=== PATIENT | male | born 1960 | race African-American/Black ===

== ENCOUNTER 2016-07-13 12:07 | Inpatient (IN) | payer OTHER ==
[2016-07-13 12:47] VITALS: BMI 27.5
--- NOTE | 2016-07-13 14:08 | HP ---
COWS - Scale Resting Pulse: 1= [place] 81-100 Sweatin= Chills/Flushing Restless Observation: 1= Difficult to Sit Still Pupil Size: 0= Normal to Room Light Bone or Joint Aches: 2= Severe Diffuse Aches Runny Nose/ Eye Tearin= Nasal Congestion GI Upset > 30mins: 1= Stomach Cramp Tremor Observation: 1= Tremor [place], Not Seen Yawning Observation: 1= 1-2x During Session Anxiety or Irritability: 1=Feels Anxious/Irritable Goose Flesh Skin: 0=Smooth Skin COWS Score: 10 Admission ROS BHS - HPI Chief Complaint: I want to stop - my friend overdosed - they just took him off the life support yesterday Allergies/Adverse Reactions: Allergies Allergy/AdvReac Type Severity Reaction Status Date / Time No Known Allergies Allergy Verified 07/13/16 14:02 History of Present Illness: 56 yo gentleman here for detox from opiates, history of previous detox, no seizures. Exam Limitations: Clinical Condition - Ebola screening Have you traveled outside of the country in the last 21 days: No Have you had contact with anyone from an Ebola affected area: No Have you been sick,other than usual withdrawal symptoms: No Do you have a fever: No - Review of Systems Constitutional: Chills, Loss of Appetite, Night Sweats, Changes in sleep EENT: reports: Blurred Vision, Nose Congestion Respiratory: reports: No Symptoms reported Cardiac: reports: No Symptoms Reported GI: reports: Diarrhea, Nausea : reports: No Symptoms Reported Musculoskeletal: reports: Back Pain, Muscle Pain Integumentary: reports: No Symptoms Reported Neuro: reports: Headache Endocrine: reports: No Symptoms Reported Hematology: reports: No Symptoms Reported Psychiatric: reports: Judgement Intact, Mood/Affect Appropiate, Orientated x3, Anxious Other Systems: Reviewed and Negative Patient History - Patient Medical History Hx Anemia: No Hx Asthma: No Hx Chronic Obstructive Pulmonary Disease (COPD): No Hx Cancer: No Hx Cardiac Disorders: No Hx Congestive Heart Failure: No Hx Hypertension: No Hx Hypercholesterolemia: No Hx Pacemaker: No HX Cerebrovascular Accident: No Hx Seizures: No Hx Dementia: No Hx Diabetes: No Hx Gastrointestinal Disorders: No Hx Liver Disease: No Hx Genitourinary Disorders: No Hx Sexually Transmitted Disorders: No Hx Renal Disease (ESRD): No Hx Thyroid Disease: No Hx Human Immunodeficiency Virus (HIV): No Hx Hepatitis C: No Hx Depression: No Hx Suicide Attempt: No Hx Bipolar Disorder: No Hx Schizophrenia: No - Patient Surgical History Past Surgical History: Yes Other Surgical History: scalp surgery 2007 - PPD History Previous Implant?: Yes (states took inh/b6 1987) Documented Results: Positive w/o proof PPD to be Administered?: No - Reproductive History Patient is a Female of Child Bearing Age (11 -55 yrs old): No (male) - Smoking Cessation Smoking history: Current every day smoker Have you smoked in the past 12 months: Yes Aproximately how many cigarettes per day: 10 Initiated information on smoking cessation: Yes 'Breaking Loose' booklet given: 07/13/16 (give on floor) - Substance & Tx. History Hx Alcohol Use: No Hx Substance Use: Yes Substance Use Type: Heroin Hx Substance Use Treatment: Yes (hx detox, rehab, hx suboxone) - Substances Abused Heroin Route: Inhalation Frequency: Daily Amount used: 7 bags Age of first use: 11 Date of Last Use: 07/13/16 Family Disease History - Family Disease History Family Disease History: Other: Grandparent (grandpa etoh, grandma heroin), Father ( heroin overdose), Mother ( heroin overdose), Daughter Admission Physical Exam BHS - Vital Signs Vital Signs: Vital Signs - 24 hr 07/13/16 12:45 Temperature 97.8 F Pulse Rate 99 H Respiratory 20 Rate Blood Pressure 116/65 - Physical General Appearance: Yes: Nourished, Appropriately Dressed, Mild Distress, Anxious HEENTM: Yes: Hearing grossly Normal, Normal ENT Inspection, Normocephalic, Normal Voice, Pharynx Normal, Other (healed scalp scar) Respiratory: Yes: Lungs Clear, Normal Breath Sounds, No Respiratory Distress Neck: Yes: No masses,lesions,Nodules, Supple, Trachea in good position Breast: Yes: Breast Exam Deferred Cardiology: Yes: Regular Rhythm, Regular Rate Abdominal: Yes: Soft Genitourinary: Yes: Within Normal Limits Back: Yes: Normal Inspection Musculoskeletal: Yes: full range of Motion, Gait Steady Extremities: Yes: Normal Inspection, Normal Range of Motion Neurological: Yes: Fully Oriented, Alert, Motor Strength 5/5, Normal Mood/Affect , Normal Response Integumentary: Yes: Normal Color, Warm Lymphatic: Yes: Within Normal Limits - Diagnostic (1) PPD positive, treated Current Visit: Yes Status: Chronic (2) Uncomplicated opioid dependence Current Visit: Yes Status: Chronic (3) Nicotine dependence Current Visit: Yes Status: Chronic Qualifiers: Nicotine product type: cigarettes Substance use status: uncomplicated Qualified Code(s): F17.210 - Nicotine dependence, cigarettes, uncomplicated Cleared for Admission BHS - Detox or Rehab [facility] Level of Care: Medically Managed Detox Regimen/Protocol: Methadone S Breath Alcohol Content Breath Alcohol Content: 0 Urine Drug Screen - Results Drug Screen Negative: No Urine Drug Screen Results: OPI-Opiates
[2016-07-13] MEDS ORDERED: hydrOXYzine PAMOATE 50 MG CAPSULE (FP) PO PRN (14:12)
[2016-07-13] MEDS ORDERED: MAGNESIUM CITRATE 300 ML BOTTLE PO PRN (14:12)
[2016-07-13] MEDS ORDERED: LOPERAMIDE HCL 2 MG CAPSULE PO PRN (14:12)
[2016-07-13] MEDS ORDERED: MENTHOL/PHENOL 1 EACH UD MM PRN (14:12)
[2016-07-13] MEDS ORDERED: MAGNESIUM HYDROX 2400MG/30ML ORAL SUSPENSION 30 ML CUP PO PRN (14:12)
[2016-07-13] MEDS ORDERED: P-EPHED 60MG/TRIPROLIDI 2.5MG TABLET PO PRN (14:12)
[2016-07-13] MEDS ORDERED: ACETAMINOPHEN 325 MG TABLET (FP) PO PRN (14:12)
[2016-07-13] MEDS ORDERED: IBUPROFEN 400 MG TABLET (FP) PO PRN (14:12)
[2016-07-13] MEDS ORDERED: MAG HYDROX/AL HYDROX/SIMETH 30 ML UNIT-DOSE CUP PO PRN (14:12)
[2016-07-13] MEDS ORDERED: METHADONE HCL 10 MG TABLET (FOR DETOX USE ONLY) PO ONE ×2 (14:12→23:00)
[2016-07-13] MEDS ORDERED: guaiFENesin/D-METHORPHAN HB 10 ML UNIT-DOSE CUPS PO PRN (14:12)
[2016-07-13] MEDS ORDERED: METHADONE HCL 10 MG TABLET (FOR DETOX USE ONLY) ONE (16:44)
[2016-07-13] MEDS: NICOTINE 14 MG/24 HOURS TOPICAL PATCH TD SCH (17:16)
[2016-07-13] MEDS: diazePAM 5 MG TABLET PO PRN (17:17)
[2016-07-13] MEDS: NICOTINE POLACRILEX 2 MG GUM BUC PRN ×2 (17:17→22:07)
[2016-07-13 19:21] LABS: URINE APPEARANCE CLEAR; URINE BILIRUBIN NEGATIVE (NEGATIVE); URINE BLOOD NEGATIVE (NEGATIVE); URINE COLOR LTYELLOW; URINE GLUCOSE (UA) NEGATIVE (NEGATIVE); URINE KETONE NEGATIVE (NEGATIVE); URINE LEUK ESTERASE NEGATIVE (NEGATIVE); URINE NITRITE NEGATIVE (NEGATIVE); URINE PROTEIN NEGATIVE (NEGATIVE); URINE UROBILINOGEN NEGATIVE E.U./dl (0.2-1.0)
[2016-07-13] MEDS: THIAMINE HCL 100 MG TABLET (FP) PO SCH (22:06)
[2016-07-13] MEDS: diphenhydrAMINE HCL 50 MG CAPSULE PO PRN (22:06)
[2016-07-14] MEDS: diazePAM 5 MG TABLET PO PRN ×4 (02:25→22:18)
[2016-07-14] MEDS ORDERED: METHADONE HCL 10 MG TABLET (FOR DETOX USE ONLY) PO ONE (10:00)
[2016-07-14] MEDS: PRENATAL VITAMINS W/ FOLIC ACID TABLET (FP) PO SCH (10:04)
[2016-07-14] MEDS: NICOTINE 14 MG/24 HOURS TOPICAL PATCH TD SCH (10:04)
[2016-07-14] MEDS: NICOTINE POLACRILEX 2 MG GUM BUC PRN ×4 (10:05→22:20)
[2016-07-14 11:08] LABS: MCHC 33.7 g/dl (32.0-35.9); MEAN PLT VOLUME 8.4 fl (7.5-11.1); PLATELET COUNT 228 K/MM3 (134-434); RDW 15.9 % (11.9-15.9); WHITE BLOOD COUNT 8.4 K/mm3 (4.0-10.0)
[2016-07-14 11:15] LABS: ANION GAP 8 (8-16); CALCIUM 8.3 mg/dL (8.5-10.1); CO2 27 mmol/L (21-32); COCKROFT - GAULT 133; CREATININE 0.7 mg/dL (0.7-1.3); GLUCOSE,RANDOM 94 mg/dL (74-106); SGOT/AST 29 U/L (15-37); SGPT/ALT 25 U/L (12-78)
[2016-07-14 11:24] LABS: ALK PHOS 70 U/L (45-117); BILIRUBIN,TOTAL 0.2 mg/dL (0.2-1.0); TOT PROT 6.5 g/dl (6.4-8.2)
--- NOTE | 2016-07-14 12:45 | EKG ---
Test Reason : Blood Pressure : / mmHG Vent. Rate : 081 BPM Atrial Rate : 081 BPM P-R Int : 164 ms QRS Dur : 078 ms QT Int : 386 ms P-R-T Axes : 068 -09 017 degrees QTc Int : 448 ms NORMAL SINUS RHYTHM NORMAL ECG NO PREVIOUS ECGS AVAILABLE Confirmed by HORACIO JARRETT MD ([id number]) on 07/14/2016 12:44:47 PM Referred By: Confirmed By:HORACIO JARRETT MD
--- NOTE | 2016-07-14 13:06 | PN ---
BHS COWS - Scale Resting Pulse: 1= [place] 81-100 Sweatin=Flushed/Facial Moisture Restless Observation: 3= Extraneous Movement Pupil Size: 0= Normal to Room Light Bone or Joint Aches: 2= Severe Diffuse Aches Runny Nose/ Eye Tearin= Runny Nose/Eyes GI Upset > 30mins: 2= Nausea/Diarrhea Tremor Observation of Outstretched Hands: 2= Slight Tremor Visible Yawning Observation: 0= None Anxiety or Irritability: 2=Irritable/Anxious Goose Flesh Skin: 0=Smooth Skin COWS Score: 16 BHS Progress Note (SOAP) Subjective: Anxious, sweating, chills, tremor, interrupted sleep Objective: 07/14/16 13:04 Last Vital Signs Temp Pulse Resp BP Pulse Ox 99.2 F 80 18 119/78 07/14/16 13:02 07/14/16 13:02 07/14/16 13:02 07/14/16 13:02 Laboratory Tests 07/13/16 07/14/16 07/14/16 19:03 07:00 07:00 WBC 8.4 RBC 3.86 L Hgb 12.0 Hct 35.5 MCV 92.0 MCHC 33.7 RDW 15.9 Plt Count 228 MPV 8.4 Sodium 140 Potassium 3.8 Chloride 105 Carbon Dioxide 27 Anion Gap 8 BUN 13 Creatinine 0.7 Creat Clearance w eGFR > 60 Random Glucose 94 Calcium 8.3 L Total Bilirubin 0.2 AST 29 ALT 25 Alkaline Phosphatase 70 Total Protein 6.5 Albumin 3.0 L Urine Color Ltyellow Urine Appearance Clear Urine pH 6.0 Ur Specific [place] 1.015 Urine Protein Negative Urine Glucose (UA) Negative Urine Ketones Negative Urine Blood Negative Urine Nitrite Negative Urine Bilirubin Negative Urine Urobilinogen Negative Ur Leukocyte Esterase Negative RPR Titer 07/14/16 07:00 WBC RBC Hgb Hct MCV MCHC RDW Plt Count MPV Sodium Potassium Chloride Carbon Dioxide Anion Gap BUN Creatinine Creat Clearance w eGFR Random Glucose Calcium Total Bilirubin AST ALT Alkaline Phosphatase Total Protein Albumin Urine Color Urine Appearance Urine pH Ur Specific [place] Urine Protein Urine Glucose (UA) Urine Ketones Urine Blood Urine Nitrite Urine Bilirubin Urine Urobilinogen Ur Leukocyte Esterase RPR Titer Nonreactive Labs noted Assessment: 07/14/16 13:05 Withdrawal symptoms Plan: Continue detox
[2016-07-14] MEDS: diphenhydrAMINE HCL 50 MG CAPSULE PO PRN (22:18)
[2016-07-14] MEDS: THIAMINE HCL 100 MG TABLET (FP) PO SCH (22:18)
[2016-07-15] MEDS ORDERED: METHADONE HCL 5 MG TABLET (FOR DETOX USE ONLY) PO ONE (10:00)
[2016-07-15] MEDS: PRENATAL VITAMINS W/ FOLIC ACID TABLET (FP) PO SCH (10:02)
[2016-07-15] MEDS: NICOTINE 14 MG/24 HOURS TOPICAL PATCH TD SCH (10:03)
[2016-07-15] MEDS: NICOTINE POLACRILEX 2 MG GUM BUC PRN ×3 (10:04→22:08)
--- NOTE | 2016-07-15 12:00 | PN ---
BHS COWS - Scale Resting Pulse: 1= [place] 81-100 Sweatin=Flushed/Facial Moisture Restless Observation: 1= Difficult to Sit Still Pupil Size: 0= Normal to Room Light Bone or Joint Aches: 1= Mild Discomfort Runny Nose/ Eye Tearin= Nasal Congestion GI Upset > 30mins: 2= Nausea/Diarrhea Tremor Observation of Outstretched Hands: 2= Slight Tremor Visible Yawning Observation: 1= 1-2x During Session Anxiety or Irritability: 2=Irritable/Anxious Goose Flesh Skin: 0=Smooth Skin COWS Score: 13 BHS Progress Note (SOAP) Subjective: Anxiety,tremors,interrupted sleep,restless,muscle aches Objective: 07/15/16 11:59 Last Vital Signs Temp Pulse Resp BP Pulse Ox 98.0 F 81 18 103/69 07/15/16 09:25 07/15/16 09:25 07/15/16 09:25 07/15/16 09:25 Laboratory Tests 07/13/16 07/14/16 07/14/16 19:03 07:00 07:00 WBC 8.4 RBC 3.86 L Hgb 12.0 Hct 35.5 MCV 92.0 MCHC 33.7 RDW 15.9 Plt Count 228 MPV 8.4 Sodium 140 Potassium 3.8 Chloride 105 Carbon Dioxide 27 Anion Gap 8 BUN 13 Creatinine 0.7 Creat Clearance w eGFR > 60 Random Glucose 94 Calcium 8.3 L Total Bilirubin 0.2 AST 29 ALT 25 Alkaline Phosphatase 70 Total Protein 6.5 Albumin 3.0 L Urine Color Ltyellow Urine Appearance Clear Urine pH 6.0 Ur Specific [place] 1.015 Urine Protein Negative Urine Glucose (UA) Negative Urine Ketones Negative Urine Blood Negative Urine Nitrite Negative Urine Bilirubin Negative Urine Urobilinogen Negative Ur Leukocyte Esterase Negative RPR Titer 07/14/16 07:00 WBC RBC Hgb Hct MCV MCHC RDW Plt Count MPV Sodium Potassium Chloride Carbon Dioxide Anion Gap BUN Creatinine Creat Clearance w eGFR Random Glucose Calcium Total Bilirubin AST ALT Alkaline Phosphatase Total Protein Albumin Urine Color Urine Appearance Urine pH Ur Specific [place] Urine Protein Urine Glucose (UA) Urine Ketones Urine Blood Urine Nitrite Urine Bilirubin Urine Urobilinogen Ur Leukocyte Esterase RPR Titer Nonreactive labs noted Assessment: 07/15/16 12:00 Withdrawal sx. Plan: Continue detox
[2016-07-15] MEDS: diazePAM 5 MG TABLET PO PRN ×2 (17:57→22:06)
[2016-07-15] MEDS: THIAMINE HCL 100 MG TABLET (FP) PO SCH (22:06)
[2016-07-15] MEDS: diphenhydrAMINE HCL 50 MG CAPSULE PO PRN (22:07)
[2016-07-16] MEDS: NICOTINE POLACRILEX 2 MG GUM BUC PRN ×3 (05:37→22:04)
[2016-07-16] MEDS: diazePAM 5 MG TABLET PO PRN ×2 (05:37→10:04)
--- NOTE | 2016-07-16 09:43 | PN ---
BHS Progress Note (SOAP) Subjective: Sweating,interrupted sleep,restless Objective: 07/16/16 09:41 Vital Signs - 8 hr 07/16/16 07/16/16 07/16/16 03:04 06:22 09:23 Temperature 97.6 F 97.0 F L Pulse Rate 81 89 Respiratory 18 16 18 Rate Blood Pressure 95/67 99/68 Laboratory Last Values WBC 8.4 K/mm3 (4.0-10.0) 07/14/16 07:00 RBC 3.86 M/mm3 (4.00-5.60) L 07/14/16 07:00 Hgb 12.0 GM/dL (11.7-16.9) 07/14/16 07:00 Hct 35.5 % (35.4-49) 07/14/16 07:00 MCV 92.0 fl (80-96) 07/14/16 07:00 MCHC 33.7 g/dl (32.0-35.9) 07/14/16 07:00 RDW 15.9 % (11.9-15.9) 07/14/16 07:00 Plt Count 228 K/MM3 (134-434) 07/14/16 07:00 MPV 8.4 fl (7.5-11.1) 07/14/16 07:00 Sodium 140 mmol/L (136-145) 07/14/16 07:00 Potassium 3.8 mmol/L (3.5-5.1) 07/14/16 07:00 Chloride 105 mmol/L (98-107) 07/14/16 07:00 Carbon Dioxide 27 mmol/L (21-32) 07/14/16 07:00 Anion Gap 8 (8-16) 07/14/16 07:00 BUN 13 mg/dL (7-18) 07/14/16 07:00 Creatinine 0.7 mg/dL (0.7-1.3) 07/14/16 07:00 Creat Clearance w eGFR > 60 (>60) 07/14/16 07:00 Random Glucose 94 mg/dL (74-106) 07/14/16 07:00 Calcium 8.3 mg/dL (8.5-10.1) L 07/14/16 07:00 Total Bilirubin 0.2 mg/dL (0.2-1.0) 07/14/16 07:00 AST 29 U/L (15-37) 07/14/16 07:00 ALT 25 U/L (12-78) 07/14/16 07:00 Alkaline Phosphatase 70 U/L (45-117) 07/14/16 07:00 Total Protein 6.5 g/dl (6.4-8.2) 07/14/16 07:00 Albumin 3.0 g/dl (3.4-5.0) L 07/14/16 07:00 Urine Color Ltyellow 07/13/16 19:03 Urine Appearance Clear 07/13/16 19:03 Urine pH 6.0 (5.0-8.0) 07/13/16 19:03 Ur Specific [place] 1.015 (1.001-1.035) 07/13/16 19:03 Urine Protein Negative (NEGATIVE) 07/13/16 19:03 Urine Glucose (UA) Negative (NEGATIVE) 07/13/16 19:03 Urine Ketones Negative (NEGATIVE) 07/13/16 19:03 Urine Blood Negative (NEGATIVE) 07/13/16 19:03 Urine Nitrite Negative (NEGATIVE) 07/13/16 19:03 Urine Bilirubin Negative (NEGATIVE) 07/13/16 19:03 Urine Urobilinogen Negative E.U./dl (0.2-1.0) 07/13/16 19:03 Ur Leukocyte Esterase Negative (NEGATIVE) 07/13/16 19:03 RPR Titer Nonreactive (NONREACTIVE) 07/14/16 07:00 labs noted Assessment: 07/16/16 09:42 Withdrawal sx. Plan: Continue detox
[2016-07-16] MEDS ORDERED: METHADONE HCL 5 MG TABLET (FOR DETOX USE ONLY) PO ONE (10:00)
[2016-07-16] MEDS: NICOTINE 14 MG/24 HOURS TOPICAL PATCH TD SCH (10:04)
[2016-07-16] MEDS: PRENATAL VITAMINS W/ FOLIC ACID TABLET (FP) PO SCH (10:04)
[2016-07-16] MEDS: THIAMINE HCL 100 MG TABLET (FP) PO SCH (22:02)
[2016-07-16] MEDS: diphenhydrAMINE HCL 50 MG CAPSULE PO PRN (22:03)
[2016-07-17] MEDS ORDERED: METHADONE HCL 10 MG TABLET (FOR DETOX USE ONLY) PO ONE (10:00)
[2016-07-17] MEDS: PRENATAL VITAMINS W/ FOLIC ACID TABLET (FP) PO SCH (10:23)
[2016-07-17] MEDS: NICOTINE 14 MG/24 HOURS TOPICAL PATCH TD SCH (10:24)
[2016-07-17] MEDS: NICOTINE POLACRILEX 2 MG GUM BUC PRN (10:25)
--- NOTE | 2016-07-17 12:59 | PN ---
BHS Progress Note (SOAP) Subjective: Interrupted sleep only Detox symptom reported by pt. today. Objective: PT. A & O X 2 (DISORIENTED ABOUT DAY / DATE). 07/17/16 12:58 Vital Signs Temperature 97 F L 07/17/16 09:47 Pulse Rate 88 07/17/16 09:47 Respiratory Rate 20 07/17/16 09:47 Blood Pressure 107/61 07/17/16 09:47 O2 Sat by Pulse Oximetry (%) Laboratory Last Values WBC 8.4 K/mm3 (4.0-10.0) 07/14/16 07:00 RBC 3.86 M/mm3 (4.00-5.60) L 07/14/16 07:00 Hgb 12.0 GM/dL (11.7-16.9) 07/14/16 07:00 Hct 35.5 % (35.4-49) 07/14/16 07:00 MCV 92.0 fl (80-96) 07/14/16 07:00 MCHC 33.7 g/dl (32.0-35.9) 07/14/16 07:00 RDW 15.9 % (11.9-15.9) 07/14/16 07:00 Plt Count 228 K/MM3 (134-434) 07/14/16 07:00 MPV 8.4 fl (7.5-11.1) 07/14/16 07:00 Sodium 140 mmol/L (136-145) 07/14/16 07:00 Potassium 3.8 mmol/L (3.5-5.1) 07/14/16 07:00 Chloride 105 mmol/L (98-107) 07/14/16 07:00 Carbon Dioxide 27 mmol/L (21-32) 07/14/16 07:00 Anion Gap 8 (8-16) 07/14/16 07:00 BUN 13 mg/dL (7-18) 07/14/16 07:00 Creatinine 0.7 mg/dL (0.7-1.3) 07/14/16 07:00 Creat Clearance w eGFR > 60 (>60) 07/14/16 07:00 Random Glucose 94 mg/dL (74-106) 07/14/16 07:00 Calcium 8.3 mg/dL (8.5-10.1) L 07/14/16 07:00 Total Bilirubin 0.2 mg/dL (0.2-1.0) 07/14/16 07:00 AST 29 U/L (15-37) 07/14/16 07:00 ALT 25 U/L (12-78) 07/14/16 07:00 Alkaline Phosphatase 70 U/L (45-117) 07/14/16 07:00 Total Protein 6.5 g/dl (6.4-8.2) 07/14/16 07:00 Albumin 3.0 g/dl (3.4-5.0) L 07/14/16 07:00 Urine Color Ltyellow 07/13/16 19:03 Urine Appearance Clear 07/13/16 19:03 Urine pH 6.0 (5.0-8.0) 07/13/16 19:03 Ur Specific [place] 1.015 (1.001-1.035) 07/13/16 19:03 Urine Protein Negative (NEGATIVE) 07/13/16 19:03 Urine Glucose (UA) Negative (NEGATIVE) 07/13/16 19:03 Urine Ketones Negative (NEGATIVE) 07/13/16 19:03 Urine Blood Negative (NEGATIVE) 07/13/16 19:03 Urine Nitrite Negative (NEGATIVE) 07/13/16 19:03 Urine Bilirubin Negative (NEGATIVE) 07/13/16 19:03 Urine Urobilinogen Negative E.U./dl (0.2-1.0) 07/13/16 19:03 Ur Leukocyte Esterase Negative (NEGATIVE) 07/13/16 19:03 RPR Titer Nonreactive (NONREACTIVE) 07/14/16 07:00 LABS NOTED. Assessment: 07/17/16 12:59 WITHDRAWAL SYMPTOMS. Plan: CONTINUE DETOX. ADVISED PATIENT TO FOLLOW-UP WITH BABY NURSE / REHAB MEDICAL PROVIDER AFTER DISCHARGE FROM DETOX FOR GENERAL MEDICAL ASSESSMENT AND FOR ABNORMAL ADMISSION LAB VALUES.
[2016-07-17] MEDS: THIAMINE HCL 100 MG TABLET (FP) PO SCH (22:35)
[2016-07-18] MEDS: NICOTINE POLACRILEX 2 MG GUM BUC PRN (05:33)
[2016-07-18] MEDS ORDERED: METHADONE HCL 5 MG TABLET (FOR DETOX USE ONLY) PO ONE (06:00)
[2016-07-18 06:32] VITALS: BP 112/71; PULSE 79; TEMP 98
--- NOTE | 2016-07-18 15:14 | DS ---
[facility] Detox Discharge Summary Admission Date: 07/13/16 Discharge Date: 07/18/16 - History Present History: Opioid Dependence Pertinent Past History: PPD+ - Physical Exam Results Vital Signs: Vital Signs Temperature 98.0 F 07/18/16 06:31 Pulse Rate 79 07/18/16 06:31 Respiratory Rate 16 07/18/16 06:31 Blood Pressure 112/71 07/18/16 06:31 O2 Sat by Pulse Oximetry (%) Pertinent Admission Physical Exam Findings: Withdrawal sx. Laboratory Last Values WBC 8.4 K/mm3 (4.0-10.0) 07/14/16 07:00 RBC 3.86 M/mm3 (4.00-5.60) L 07/14/16 07:00 Hgb 12.0 GM/dL (11.7-16.9) 07/14/16 07:00 Hct 35.5 % (35.4-49) 07/14/16 07:00 MCV 92.0 fl (80-96) 07/14/16 07:00 MCHC 33.7 g/dl (32.0-35.9) 07/14/16 07:00 RDW 15.9 % (11.9-15.9) 07/14/16 07:00 Plt Count 228 K/MM3 (134-434) 07/14/16 07:00 MPV 8.4 fl (7.5-11.1) 07/14/16 07:00 Sodium 140 mmol/L (136-145) 07/14/16 07:00 Potassium 3.8 mmol/L (3.5-5.1) 07/14/16 07:00 Chloride 105 mmol/L (98-107) 07/14/16 07:00 Carbon Dioxide 27 mmol/L (21-32) 07/14/16 07:00 Anion Gap 8 (8-16) 07/14/16 07:00 BUN 13 mg/dL (7-18) 07/14/16 07:00 Creatinine 0.7 mg/dL (0.7-1.3) 07/14/16 07:00 Creat Clearance w eGFR > 60 (>60) 07/14/16 07:00 Random Glucose 94 mg/dL (74-106) 07/14/16 07:00 Calcium 8.3 mg/dL (8.5-10.1) L 07/14/16 07:00 Total Bilirubin 0.2 mg/dL (0.2-1.0) 07/14/16 07:00 AST 29 U/L (15-37) 07/14/16 07:00 ALT 25 U/L (12-78) 07/14/16 07:00 Alkaline Phosphatase 70 U/L (45-117) 07/14/16 07:00 Total Protein 6.5 g/dl (6.4-8.2) 07/14/16 07:00 Albumin 3.0 g/dl (3.4-5.0) L 07/14/16 07:00 Urine Color Ltyellow 07/13/16 19:03 Urine Appearance Clear 07/13/16 19:03 Urine pH 6.0 (5.0-8.0) 07/13/16 19:03 Ur Specific [place] 1.015 (1.001-1.035) 07/13/16 19:03 Urine Protein Negative (NEGATIVE) 07/13/16 19:03 Urine Glucose (UA) Negative (NEGATIVE) 07/13/16 19:03 Urine Ketones Negative (NEGATIVE) 07/13/16 19:03 Urine Blood Negative (NEGATIVE) 07/13/16 19:03 Urine Nitrite Negative (NEGATIVE) 07/13/16 19:03 Urine Bilirubin Negative (NEGATIVE) 07/13/16 19:03 Urine Urobilinogen Negative E.U./dl (0.2-1.0) 07/13/16 19:03 Ur Leukocyte Esterase Negative (NEGATIVE) 07/13/16 19:03 RPR Titer Nonreactive (NONREACTIVE) 07/14/16 07:00 labs noted - Treatment Hospital Course: Detox Protocol Followed, Detoxed Safely, Responded well, Discharged Condition Good, Rehab Referral Accepted Patient has Accepted a Rehab Referral to: [facility] with MAT - Medication Discharge Medications: Ambulatory Orders NK [No Known Home Medication] 07/13/16 - Diagnosis (1) Nicotine dependence Status: Chronic Qualifiers: Nicotine product type: cigarettes Substance use status: uncomplicated Qualified Code(s): F17.210 - Nicotine dependence, cigarettes, uncomplicated (2) PPD positive, treated Status: Chronic (3) Opioid dependence with withdrawal Status: Acute - AMA Did Patient Leave Against Medical Advice: No
== END 2016-07-18 08:35 | disposition home or self-care (01) | DRG 773 ==
LOC: YASAS 12:07 → Y3N 15:12
PROVIDERS: ADMIT Internal Medicine; ATTEND Internal Medicine
PROC: HZ2ZZZZ Detoxification Services for Substance Abuse Treatment (ICD-10-PCS; principal; 2016-07-13)
DX: F11.23 Opioid dependence with withdrawal (principal); F17.210 Nicotine dependence, cigarettes, uncomplicated; R76.11 Nonspecific reaction to tuberculin skin test without active tuberculosis
CPT/HCPCS: 36415; 71020-TC; 80053; 81003; 85027; 86593; 93005; 93010

== ENCOUNTER 2017-04-18 09:34 | Inpatient (IN) | payer OTHER ==
[2017-04-18 09:47] VITALS: BMI 27.0
--- NOTE | 2017-04-18 11:10 | HP ---
COWS - Scale Resting Pulse: 1= [place] 81-100 Sweatin= Chills/Flushing Restless Observation: 3= Extraneous Movement Pupil Size: 0= Normal to Room Light Bone or Joint Aches: 4=Acute Joint/Muscle Pain Runny Nose/ Eye Tearin= Nasal Congestion GI Upset > 30mins: 1= Stomach Cramp Tremor Observation: 2= Slight Tremor Visible Yawning Observation: 1= 1-2x During Session Anxiety or Irritability: 2=Irritable/Anxious Goose Flesh Skin: 0=Smooth Skin COWS Score: 16 Admission ROS S - HPI Chief Complaint: WITHDRAWAL SX FROM HEROIN Allergies/Adverse Reactions: Allergies Allergy/AdvReac Type Severity Reaction Status Date / Time No Known Allergies Allergy Verified 07/13/16 14:02 History of Present Illness: 57 Y/0 AA/MALE WITH A HX OF HEROIN DEPENDENCE SEEKING DETOX TX. PT HAS A PREVIOUS TX EPISODE. Exam Limitations: No Limitations - Ebola screening Have you traveled outside of the country in the last 21 days: No Have you had contact with anyone from an Ebola affected area: No Have you been sick,other than usual withdrawal symptoms: No Do you have a fever: No - Review of Systems Constitutional: Chills, Night Sweats, Changes in sleep EENT: reports: Blurred Vision (WEARS READING GLASSES), Tearing, Nose Congestion Respiratory: reports: No Symptoms reported Cardiac: reports: Lightheadedness GI: reports: Constipated, Diarrhea, Nausea, Vomiting : reports: No Symptoms Reported Musculoskeletal: reports: Back Pain, Joint Pain, Muscle Pain Integumentary: reports: No Symptoms Reported Neuro: reports: Headache, Dizziness Endocrine: reports: No Symptoms Reported Hematology: reports: No Symptoms Reported Psychiatric: reports: Orientated x3 Other Systems: Reviewed and Negative Patient History - Patient Medical History Hx Anemia: No Hx Asthma: No Hx Chronic Obstructive Pulmonary Disease (COPD): No Hx Cancer: No Hx Cardiac Disorders: No Hx Congestive Heart Failure: No Hx Hypertension: No Hx Hypercholesterolemia: No Hx Pacemaker: No HX Cerebrovascular Accident: No Hx Seizures: No Hx Dementia: No Hx Diabetes: No Hx Gastrointestinal Disorders: No Hx Liver Disease: No Hx Genitourinary Disorders: No Hx Sexually Transmitted Disorders: No Hx Renal Disease (ESRD): No Hx Thyroid Disease: No Hx Human Immunodeficiency Virus (HIV): No (NEGATIVE HX) Hx Hepatitis C: No Hx Depression: No Hx Suicide Attempt: No (DENIES) Hx Bipolar Disorder: No Hx Schizophrenia: No - Patient Surgical History Past Surgical History: Yes Hx Neurologic Surgery: No Hx Cataract Extraction: No Hx Cardiac Surgery: No Hx Lung Surgery: No Hx Breast Surgery: No Hx Breast Biopsy: No Hx Abdominal Surgery: No Hx Appendectomy: No Hx Cholecystectomy: No Hx Genitourinary Surgery: No Hx Orthopedic Surgery: No Other Surgical History: scalp surgery 2007 Anesthesia Reaction: No - PPD History Previous Implant?: Yes Documented Results: Positive w/proof Implanted On Prior [facility] Admission?: No PPD to be Administered?: No - Reproductive History Patient is a Female of Child Bearing Age (11 -55 yrs old): No (MALE) - Smoking Cessation Smoking history: Current every day smoker Have you smoked in the past 12 months: Yes Aproximately how many cigarettes per day: 10 Hx Chewing Tobacco Use: No Initiated information on smoking cessation: Yes 'Breaking Loose' booklet given: 04/18/17 - Substance & Tx. History Hx Alcohol Use: No (DENIES) Hx Substance Use: Yes (HEROIN) Substance Use Type: Heroin Hx Substance Use Treatment: Yes (LAST TX AT [facility]) - Substances Abused Heroin Route: Inhalation Frequency: Daily Amount used: 10 bags Age of first use: 9 Date of Last Use: 04/18/17 Family Disease History - Family Disease History Family Disease History: Other: Grandparent (grandpa etoh, grandma heroin), Father ( heroin overdose), Mother ( heroin overdose), Daughter Admission Physical Exam BHS - Vital Signs Vital Signs: Vital Signs - 24 hr 04/18/17 09:36 Temperature 96.9 F L Pulse Rate 97 H Respiratory 18 Rate Blood Pressure 117/76 - Physical General Appearance: Yes: Moderate Distress, Irritable, Anxious HEENTM: Yes: EOMI, Normocephalic, KACIE, Pharynx Normal Respiratory: Yes: Chest Non-Tender, Lungs Clear, Normal Breath Sounds, No Respiratory Distress Neck: Yes: No masses,lesions,Nodules, Supple, Trachea in good position Breast: Yes: Breast Exam Deferred Cardiology: Yes: Regular Rhythm, Regular Rate, S1, S2 Abdominal: Yes: Normal Bowel Sounds, Non Tender, Flat Genitourinary: Yes: Other (N/C) Back: Yes: Within Normal Limits Musculoskeletal: Yes: full range of Motion, Gait Steady Extremities: Yes: Normal Range of Motion, Non-Tender Neurological: Yes: field court researcher II-XII NML intact, Fully Oriented, Alert, Motor Strength 5/5 Integumentary: Yes: Dry, Warm Lymphatic: Yes: Within Normal Limits - Diagnostic (1) Opioid dependence with withdrawal Current Visit: Yes Status: Acute (2) Nicotine dependence Current Visit: Yes Status: Acute Qualifiers: Nicotine product type: cigarettes Substance use status: in withdrawal Qualified Code(s): F17.213 - Nicotine dependence, cigarettes, with withdrawal Cleared for Admission [facility] - Detox or Rehab [facility] Level of Care: Medically Managed Detox Regimen/Protocol: Methadone [facility] Breath Alcohol Content Breath Alcohol Content: 0 Urine Drug Screen - Results Drug Screen Negative: No Urine Drug Screen Results: OPI-Opiates, OXY-Oxycodone
[2017-04-18] MEDS ORDERED: MENTHOL/PHENOL 1 EACH UD MM PRN (11:15)
[2017-04-18] MEDS ORDERED: guaiFENesin/D-METHORPHAN HB 10 ML UNIT-DOSE CUPS PO PRN (11:15)
[2017-04-18] MEDS ORDERED: P-EPHED 60MG/TRIPROLIDI 2.5MG TABLET PO PRN (11:15)
[2017-04-18] MEDS ORDERED: MAGNESIUM HYDROX 2400MG/30ML ORAL SUSPENSION 30 ML CUP PO PRN (11:15)
[2017-04-18] MEDS ORDERED: LOPERAMIDE HCL 2 MG CAPSULE PO PRN (11:15)
[2017-04-18] MEDS ORDERED: MAGNESIUM CITRATE 300 ML BOTTLE PO PRN (11:15)
[2017-04-18] MEDS ORDERED: ACETAMINOPHEN 325 MG TABLET (FP) PO PRN (11:15)
[2017-04-18] MEDS ORDERED: NICOTINE POLACRILEX 2 MG GUM BUC PRN (11:15)
[2017-04-18] MEDS ORDERED: MAG HYDROX/AL HYDROX/SIMETH 30 ML UNIT-DOSE CUP PO PRN (11:15)
[2017-04-18] MEDS ORDERED: IBUPROFEN 400 MG TABLET (FP) PO PRN (11:15)
[2017-04-18] MEDS ORDERED: METHADONE HCL 10 MG TABLET (FOR DETOX USE ONLY) PO ONE ×2 (12:55→23:00)
[2017-04-18 13:56] LABS: HEMATOCRIT 36.6 % (32.4-45.2); HEMOGLOBIN 11.8 GM/dL (10.7-15.3); MCH 29.6 pg (25.7-33.7); MCHC 32.3 g/dl (32.0-36.0); MEAN CELL VOLUME 91.6 fl (80-96); PLATELET COUNT 302 K/MM3 (134-434); RBC 3.99 M/mm3 (3.60-5.2); RDW 15.7 % (11.6-15.6); WHITE BLOOD COUNT 8.5 K/mm3 (4.0-10.0)
[2017-04-18] MEDS: NICOTINE 14 MG/24 HOURS TOPICAL PATCH TD SCH (14:06)
[2017-04-18 14:07] LABS: CHLORIDE 99 mmol/L (98-107); POTASSIUM 4.5 mmol/L (3.5-5.1); SODIUM 137 mmol/L (136-145)
[2017-04-18] MEDS: diazePAM 5 MG TABLET PO PRN ×2 (14:07→22:47)
[2017-04-18 14:36] LABS: ALBUMIN 3.2 g/dl (3.4-5.0); ALK PHOS 106 U/L (45-117); ANION GAP 8 (8-16); BILIRUBIN,TOTAL 0.3 mg/dL (0.2-1.0); BLOOD UREA NITROGEN 10 mg/dL (7-18); CALCIUM 8.8 mg/dL (8.5-10.1); CO2 30 mmol/L (21-32); CREATININE 0.7 mg/dL (0.55-1.02); GLUCOSE,RANDOM 115 mg/dL (74-106); SGOT/AST 19 U/L (15-37); SGPT/ALT 28 U/L (12-78); TOT PROT 7.3 g/dl (6.4-8.2)
[2017-04-18 20:04] LABS: URINE APPEARANCE CLEAR; URINE BILIRUBIN NEGATIVE (NEGATIVE); URINE BLOOD NEGATIVE (NEGATIVE); URINE COLOR LTYELLOW; URINE GLUCOSE (UA) NEGATIVE (NEGATIVE); URINE KETONE NEGATIVE (NEGATIVE); URINE LEUK ESTERASE NEGATIVE (NEGATIVE); URINE NITRITE NEGATIVE (NEGATIVE); URINE PROTEIN NEGATIVE (NEGATIVE); URINE UROBILINOGEN NEGATIVE mg/dL (0.2-1.0)
[2017-04-18] MEDS: THIAMINE HCL 100 MG TABLET (FP) PO SCH (23:00)
[2017-04-19] MEDS: diazePAM 5 MG TABLET PO PRN (05:50)
[2017-04-19] MEDS ORDERED: METHADONE HCL 10 MG TABLET (FOR DETOX USE ONLY) PO ONE (10:00)
[2017-04-19] MEDS: NICOTINE 14 MG/24 HOURS TOPICAL PATCH TD SCH (10:23)
[2017-04-19] MEDS: PRENATAL VITAMINS W/ FOLIC ACID TABLET (FP) PO SCH (10:23)
--- NOTE | 2017-04-19 12:29 | EKG ---
Test Reason : Blood Pressure : / mmHG Vent. Rate : 082 BPM Atrial Rate : 082 BPM P-R Int : 148 ms QRS Dur : 078 ms QT Int : 374 ms P-R-T Axes : 071 -08 028 degrees QTc Int : 436 ms NORMAL SINUS RHYTHM NORMAL ECG WHEN COMPARED WITH ECG OF 13-JUL-2016 15:56, NO SIGNIFICANT CHANGE WAS FOUND Confirmed by MD KENDALL, CLEO ([id number]) on 04/19/2017 12:28:54 PM Referred By: Confirmed By:CLEO ARGUETA MD
--- NOTE | 2017-04-19 16:31 | PN ---
S COWS - Scale Resting Pulse: 1= [place] 81-100 Sweatin=Flushed/Facial Moisture Restless Observation: 1= Difficult to Sit Still Pupil Size: 0= Normal to Room Light Bone or Joint Aches: 0= None Runny Nose/ Eye Tearin= None GI Upset > 30mins: 0= None Tremor Observation of Outstretched Hands: 2= Slight Tremor Visible Yawning Observation: 2= >3x During Session Anxiety or Irritability: 2=Irritable/Anxious Goose Flesh Skin: 3=Piloerection COWS Score: 13 BHS Progress Note (SOAP) Subjective: Tremors, Anxious, Chills, Sweating, Fatigue. Objective: PT. A & O X 3. NO ACUTE DISTRESS. 04/19/17 16:30 Vital Signs Temperature 96.4 F L 04/19/17 13:23 Pulse Rate 84 04/19/17 13:23 Respiratory Rate 18 04/19/17 13:23 Blood Pressure 108/80 04/19/17 13:23 O2 Sat by Pulse Oximetry (%) Laboratory Tests 04/18/17 04/18/17 04/18/17 12:30 12:30 12:30 WBC 8.5 RBC 3.99 Hgb 11.8 Hct 36.6 MCV 91.6 MCH 29.6 MCHC 32.3 RDW 15.7 H Plt Count 302 D MPV 8.0 Sodium 137 Potassium 4.5 Chloride 99 Carbon Dioxide 30 Anion Gap 8 BUN 10 Creatinine 0.7 Creat Clearance w eGFR > 60 Random Glucose 115 H Calcium 8.8 Total Bilirubin 0.3 D AST 19 ALT 28 Alkaline Phosphatase 106 Total Protein 7.3 Albumin 3.2 L Urine Color Urine Appearance Urine pH Ur Specific [place] Urine Protein Urine Glucose (UA) Urine Ketones Urine Blood Urine Nitrite Urine Bilirubin Urine Urobilinogen Ur Leukocyte Esterase RPR Titer Nonreactive 04/18/17 15:50 WBC RBC Hgb Hct MCV MCH MCHC RDW Plt Count MPV Sodium Potassium Chloride Carbon Dioxide Anion Gap BUN Creatinine Creat Clearance w eGFR Random Glucose Calcium Total Bilirubin AST ALT Alkaline Phosphatase Total Protein Albumin Urine Color Ltyellow Urine Appearance Clear Urine pH 6.0 Ur Specific [place] 1.017 Urine Protein Negative Urine Glucose (UA) Negative Urine Ketones Negative Urine Blood Negative Urine Nitrite Negative Urine Bilirubin Negative Urine Urobilinogen Negative Ur Leukocyte Esterase Negative RPR Titer LABS NOTED. Assessment: 04/19/17 16:30 WITHDRAWAL SYMPTOMS. Plan: CONTINUE DETOX.
[2017-04-19] MEDS: THIAMINE HCL 100 MG TABLET (FP) PO SCH (23:03)
[2017-04-20] MEDS ORDERED: METHADONE HCL 5 MG TABLET (FOR DETOX USE ONLY) PO ONE (10:00)
[2017-04-20] MEDS: PRENATAL VITAMINS W/ FOLIC ACID TABLET (FP) PO SCH (10:07)
[2017-04-20] MEDS: diazePAM 5 MG TABLET PO PRN (10:09)
[2017-04-20] MEDS: NICOTINE 14 MG/24 HOURS TOPICAL PATCH TD SCH (10:09)
--- NOTE | 2017-04-20 14:59 | PN ---
BHS COWS - Scale Resting Pulse: 1= [place] 81-100 Sweatin=Flushed/Facial Moisture Restless Observation: 3= Extraneous Movement Pupil Size: 0= Normal to Room Light Bone or Joint Aches: 2= Severe Diffuse Aches Runny Nose/ Eye Tearin= None GI Upset > 30mins: 2= Nausea/Diarrhea Tremor Observation of Outstretched Hands: 2= Slight Tremor Visible Yawning Observation: 0= None Anxiety or Irritability: 2=Irritable/Anxious Goose Flesh Skin: 0=Smooth Skin COWS Score: 14 S Progress Note (SOAP) Subjective: Tremor, chills, sweating, interrupted sleep Objective: 04/20/17 14:56 Last Vital Signs Temp Pulse Resp BP Pulse Ox 98.1 F 98 H 18 95/65 04/20/17 14:32 04/20/17 14:32 04/20/17 14:32 04/20/17 14:32 b/p 95/65 (asymptomatic) Laboratory Tests 04/18/17 04/18/17 04/18/17 12:30 12:30 12:30 WBC 8.5 RBC 3.99 Hgb 11.8 Hct 36.6 MCV 91.6 MCH 29.6 MCHC 32.3 RDW 15.7 H Plt Count 302 D MPV 8.0 Sodium 137 Potassium 4.5 Chloride 99 Carbon Dioxide 30 Anion Gap 8 BUN 10 Creatinine 0.7 Creat Clearance w eGFR > 60 Random Glucose 115 H Calcium 8.8 Total Bilirubin 0.3 D AST 19 ALT 28 Alkaline Phosphatase 106 Total Protein 7.3 Albumin 3.2 L Urine Color Urine Appearance Urine pH Ur Specific [place] Urine Protein Urine Glucose (UA) Urine Ketones Urine Blood Urine Nitrite Urine Bilirubin Urine Urobilinogen Ur Leukocyte Esterase RPR Titer Nonreactive 04/18/17 15:50 WBC RBC Hgb Hct MCV MCH MCHC RDW Plt Count MPV Sodium Potassium Chloride Carbon Dioxide Anion Gap BUN Creatinine Creat Clearance w eGFR Random Glucose Calcium Total Bilirubin AST ALT Alkaline Phosphatase Total Protein Albumin Urine Color Ltyellow Urine Appearance Clear Urine pH 6.0 Ur Specific [place] 1.017 Urine Protein Negative Urine Glucose (UA) Negative Urine Ketones Negative Urine Blood Negative Urine Nitrite Negative Urine Bilirubin Negative Urine Urobilinogen Negative Ur Leukocyte Esterase Negative RPR Titer Labs noted Assessment: 04/20/17 14:57 Withdrawal symptoms Noted with hypotension Plan: Continue detox Hypotension: asymptomatic, encouraged to drink lots of water
[2017-04-20] MEDS: THIAMINE HCL 100 MG TABLET (FP) PO SCH (23:46)
[2017-04-21] MEDS ORDERED: METHADONE HCL 5 MG TABLET (FOR DETOX USE ONLY) PO ONE (10:00)
[2017-04-21] MEDS: NICOTINE 14 MG/24 HOURS TOPICAL PATCH TD SCH (10:09)
[2017-04-21] MEDS: PRENATAL VITAMINS W/ FOLIC ACID TABLET (FP) PO SCH (10:09)
[2017-04-21] MEDS: diazePAM 5 MG TABLET PO PRN (10:09)
--- NOTE | 2017-04-21 11:59 | PN ---
BHS Progress Note (SOAP) Subjective: Fatigue, Interrupted Sleep. Objective: PT. A & O X 3. NO ACUTE DISTRESS. 04/21/17 11:58 Vital Signs Temperature 98.7 F 04/21/17 09:29 Pulse Rate 82 04/21/17 09:29 Respiratory Rate 18 04/21/17 09:29 Blood Pressure 100/72 04/21/17 09:29 O2 Sat by Pulse Oximetry (%) Laboratory Tests 04/18/17 04/18/17 04/18/17 12:30 12:30 12:30 WBC 8.5 RBC 3.99 Hgb 11.8 Hct 36.6 MCV 91.6 MCH 29.6 MCHC 32.3 RDW 15.7 H Plt Count 302 D MPV 8.0 Sodium 137 Potassium 4.5 Chloride 99 Carbon Dioxide 30 Anion Gap 8 BUN 10 Creatinine 0.7 Creat Clearance w eGFR > 60 Random Glucose 115 H Calcium 8.8 Total Bilirubin 0.3 D AST 19 ALT 28 Alkaline Phosphatase 106 Total Protein 7.3 Albumin 3.2 L Urine Color Urine Appearance Urine pH Ur Specific [place] Urine Protein Urine Glucose (UA) Urine Ketones Urine Blood Urine Nitrite Urine Bilirubin Urine Urobilinogen Ur Leukocyte Esterase RPR Titer Nonreactive 04/18/17 15:50 WBC RBC Hgb Hct MCV MCH MCHC RDW Plt Count MPV Sodium Potassium Chloride Carbon Dioxide Anion Gap BUN Creatinine Creat Clearance w eGFR Random Glucose Calcium Total Bilirubin AST ALT Alkaline Phosphatase Total Protein Albumin Urine Color Ltyellow Urine Appearance Clear Urine pH 6.0 Ur Specific [place] 1.017 Urine Protein Negative Urine Glucose (UA) Negative Urine Ketones Negative Urine Blood Negative Urine Nitrite Negative Urine Bilirubin Negative Urine Urobilinogen Negative Ur Leukocyte Esterase Negative RPR Titer LABS NOTED. Assessment: 04/21/17 11:58 WITHDRAWAL SYMPTOMS. Plan: CONTINUE DETOX.
[2017-04-21] MEDS: THIAMINE HCL 100 MG TABLET (FP) PO SCH (21:09)
[2017-04-21] MEDS: diphenhydrAMINE HCL 25 MG CAPSULE (FP) PO PRN (21:11)
[2017-04-22] MEDS ORDERED: METHADONE HCL 10 MG TABLET (FOR DETOX USE ONLY) PO ONE (10:00)
[2017-04-22] MEDS: NICOTINE 14 MG/24 HOURS TOPICAL PATCH TD SCH (10:15)
[2017-04-22] MEDS: PRENATAL VITAMINS W/ FOLIC ACID TABLET (FP) PO SCH (10:15)
--- NOTE | 2017-04-22 12:28 | PN ---
BHS Progress Note (SOAP) Subjective: Anxious, Stomach Cramping, Constipation. Objective: PT. A & O X 3. NO ACUTE DISTRESS. 04/22/17 12:27 Vital Signs Temperature 99 F 04/22/17 09:19 Pulse Rate 80 04/22/17 09:19 Respiratory Rate 18 04/22/17 09:19 Blood Pressure 111/71 04/22/17 09:19 O2 Sat by Pulse Oximetry (%) Laboratory Tests 04/18/17 04/18/17 04/18/17 12:30 12:30 12:30 WBC 8.5 RBC 3.99 Hgb 11.8 Hct 36.6 MCV 91.6 MCH 29.6 MCHC 32.3 RDW 15.7 H Plt Count 302 D MPV 8.0 Sodium 137 Potassium 4.5 Chloride 99 Carbon Dioxide 30 Anion Gap 8 BUN 10 Creatinine 0.7 Creat Clearance w eGFR > 60 Random Glucose 115 H Calcium 8.8 Total Bilirubin 0.3 D AST 19 ALT 28 Alkaline Phosphatase 106 Total Protein 7.3 Albumin 3.2 L Urine Color Urine Appearance Urine pH Ur Specific [place] Urine Protein Urine Glucose (UA) Urine Ketones Urine Blood Urine Nitrite Urine Bilirubin Urine Urobilinogen Ur Leukocyte Esterase RPR Titer Nonreactive 04/18/17 15:50 WBC RBC Hgb Hct MCV MCH MCHC RDW Plt Count MPV Sodium Potassium Chloride Carbon Dioxide Anion Gap BUN Creatinine Creat Clearance w eGFR Random Glucose Calcium Total Bilirubin AST ALT Alkaline Phosphatase Total Protein Albumin Urine Color Ltyellow Urine Appearance Clear Urine pH 6.0 Ur Specific [place] 1.017 Urine Protein Negative Urine Glucose (UA) Negative Urine Ketones Negative Urine Blood Negative Urine Nitrite Negative Urine Bilirubin Negative Urine Urobilinogen Negative Ur Leukocyte Esterase Negative RPR Titer LABS NOTED. Assessment: 04/22/17 12:28 WITHDRAWAL SYMPTOMS. Plan: CONTINUE DETOX.
[2017-04-22] MEDS: THIAMINE HCL 100 MG TABLET (FP) PO SCH (22:37)
[2017-04-22] MEDS: diphenhydrAMINE HCL 25 MG CAPSULE (FP) PO PRN (22:37)
[2017-04-23] MEDS ORDERED: METHADONE HCL 5 MG TABLET (FOR DETOX USE ONLY) PO ONE (06:00)
[2017-04-23] MEDS: PRENATAL VITAMINS W/ FOLIC ACID TABLET (FP) PO SCH (10:20)
[2017-04-23] MEDS: NICOTINE 14 MG/24 HOURS TOPICAL PATCH TD SCH (10:21)
--- NOTE | 2017-04-23 11:32 | PN ---
BHS Progress Note (SOAP) Subjective: Interrupted sleep, Fatigue, Anxious, Sweating. Objective: PT. A & O X 3. NO ACUTE DISTRESS. 04/23/17 11:30 Vital Signs Temperature 97.8 F 04/23/17 09:16 Pulse Rate 73 04/23/17 09:16 Respiratory Rate 18 04/23/17 09:16 Blood Pressure 115/74 04/23/17 09:16 O2 Sat by Pulse Oximetry (%) Laboratory Tests 04/18/17 04/18/17 04/18/17 12:30 12:30 12:30 WBC 8.5 RBC 3.99 Hgb 11.8 Hct 36.6 MCV 91.6 MCH 29.6 MCHC 32.3 RDW 15.7 H Plt Count 302 D MPV 8.0 Sodium 137 Potassium 4.5 Chloride 99 Carbon Dioxide 30 Anion Gap 8 BUN 10 Creatinine 0.7 Creat Clearance w eGFR > 60 Random Glucose 115 H Calcium 8.8 Total Bilirubin 0.3 D AST 19 ALT 28 Alkaline Phosphatase 106 Total Protein 7.3 Albumin 3.2 L Urine Color Urine Appearance Urine pH Ur Specific [place] Urine Protein Urine Glucose (UA) Urine Ketones Urine Blood Urine Nitrite Urine Bilirubin Urine Urobilinogen Ur Leukocyte Esterase RPR Titer Nonreactive 04/18/17 15:50 WBC RBC Hgb Hct MCV MCH MCHC RDW Plt Count MPV Sodium Potassium Chloride Carbon Dioxide Anion Gap BUN Creatinine Creat Clearance w eGFR Random Glucose Calcium Total Bilirubin AST ALT Alkaline Phosphatase Total Protein Albumin Urine Color Ltyellow Urine Appearance Clear Urine pH 6.0 Ur Specific [place] 1.017 Urine Protein Negative Urine Glucose (UA) Negative Urine Ketones Negative Urine Blood Negative Urine Nitrite Negative Urine Bilirubin Negative Urine Urobilinogen Negative Ur Leukocyte Esterase Negative RPR Titer LABS NOTED. Assessment: 04/23/17 11:30 WITHDRAWAL SYMPTOMS. Plan: CONTINUE DETOX. INCREASE DAILY PO FLUID INTAKE. DUE TO PERSISTENCE AND SEVERITY OF DETOX SYMPTOMS, PATIENT PERMITTED TO REMAIN ON DETOX UNIT FOR 1-2 MORE DAYS.
[2017-04-23 13:48] VITALS: BP 119/72; PULSE 87; TEMP 98.1
--- NOTE | 2017-04-23 15:45 | DS ---
[facility] Detox Discharge Summary Admission Date: 04/18/17 Discharge Date: 04/23/17 - History Present History: Opioid Dependence Additional Comments: PATIENT HAS ALREADY COMPLETED DETOX MEDICATION REGIMEN. DESPITE HIS ORIGINAL INTENTION OF REMAINING ON DETOX UNIT FOR ANOTHER 1-2 DAYS, PATIENT NOW REQUESTS TO BE DISCHARGED SO THAT HE MAY RETURN HOME AND PREPARE TO ATTEND HIS OUTPATIENT PROGRAM ([facility], [place], [place] PATIENT REPORTS THAT DETOX SYMPTOMS AT THIS TIME ARE TOLERABLE ENOUGH FOR HIM TO BE ABLE TO BE DISCHARGED. PATIENT IN STABLE MEDICAL CONDITION AT TIME OF DISCHARGE FROM DETOX UNIT. Pertinent Past History: Nicotine Dependence. - Physical Exam Results Vital Signs: Vital Signs Temperature 98.1 F 04/23/17 13:30 Pulse Rate 87 04/23/17 13:30 Respiratory Rate 18 04/23/17 13:30 Blood Pressure 119/72 04/23/17 13:30 O2 Sat by Pulse Oximetry (%) Pertinent Admission Physical Exam Findings: WITHDRAWAL SYMPTOMS. Laboratory Tests 04/18/17 04/18/17 04/18/17 12:30 12:30 12:30 WBC 8.5 RBC 3.99 Hgb 11.8 Hct 36.6 MCV 91.6 MCH 29.6 MCHC 32.3 RDW 15.7 H Plt Count 302 D MPV 8.0 Sodium 137 Potassium 4.5 Chloride 99 Carbon Dioxide 30 Anion Gap 8 BUN 10 Creatinine 0.7 Creat Clearance w eGFR > 60 Random Glucose 115 H Calcium 8.8 Total Bilirubin 0.3 D AST 19 ALT 28 Alkaline Phosphatase 106 Total Protein 7.3 Albumin 3.2 L Urine Color Urine Appearance Urine pH Ur Specific [place] Urine Protein Urine Glucose (UA) Urine Ketones Urine Blood Urine Nitrite Urine Bilirubin Urine Urobilinogen Ur Leukocyte Esterase RPR Titer Nonreactive 04/18/17 15:50 WBC RBC Hgb Hct MCV MCH MCHC RDW Plt Count MPV Sodium Potassium Chloride Carbon Dioxide Anion Gap BUN Creatinine Creat Clearance w eGFR Random Glucose Calcium Total Bilirubin AST ALT Alkaline Phosphatase Total Protein Albumin Urine Color Ltyellow Urine Appearance Clear Urine pH 6.0 Ur Specific [place] 1.017 Urine Protein Negative Urine Glucose (UA) Negative Urine Ketones Negative Urine Blood Negative Urine Nitrite Negative Urine Bilirubin Negative Urine Urobilinogen Negative Ur Leukocyte Esterase Negative RPR Titer LABS NOTED. - Treatment Hospital Course: Detox Protocol Followed, Detoxed Safely, Responded well, Discharged Condition Good Patient has Accepted a Rehab Referral to: PATIENT GOING TO [facility] ([place], [place] FOR AFTERCARE. - Medication Discharge Medications: Ambulatory Orders NK [No Known Home Medication] 07/13/16 - Diagnosis (1) Nicotine dependence Status: Chronic Qualifiers: Nicotine product type: cigarettes Substance use status: in withdrawal Qualified Code(s): F17.213 - Nicotine dependence, cigarettes, with withdrawal (2) Opioid dependence with withdrawal Status: Acute - AMA Did Patient Leave Against Medical Advice: No
== END 2017-04-23 13:53 | disposition home or self-care (01) | DRG 773 ==
LOC: EDSEX → YASAS 09:34 → Y3N 12:45
PROVIDERS: ADMIT Internal Medicine; ATTEND Internal Medicine
PROC: HZ2ZZZZ Detoxification Services for Substance Abuse Treatment (ICD-10-PCS; principal; 2017-04-18)
DX: F11.23 Opioid dependence with withdrawal (principal); F17.213 Nicotine dependence, cigarettes, with withdrawal; I95.9 Hypotension, unspecified
CPT/HCPCS: 36415; 80053; 81003; 85027; 86593; 93005; 93010

== ENCOUNTER 2018-12-11 12:05 | Inpatient (IN) | payer BC ==
[2018-12-11 17:16] VITALS: BMI 25.8
--- NOTE | 2018-12-11 17:46 | HP ---
"COWS - Scale Resting Pulse: 1= [place] 81-100 Sweatin= No chills or Flushing Restless Observation: 1= Difficult to Sit Still Pupil Size: 0= Normal to Room Light Bone or Joint Aches: 1= Mild Discomfort Runny Nose/ Eye Tearin= Runny Nose/Eyes GI Upset > 30mins: 1= Stomach Cramp Tremor Observation: 0= None Yawning Observation: 0= None Anxiety or Irritability: 2=Irritable/Anxious Goose Flesh Skin: 0=Smooth Skin COWS Score: 8 CIWA Score Nausea/Vomitin-No Nausea/No Vomiting Muscle Tremors: 1-None Visible, but [place] Anxiety: 2 Agitation: 2 Paroxysmal Sweats: No Perspiration Orientation: 0-Oriented Tacttile Disturbances: 0-None Auditory Disturbances: 0-None Visual Disturbances: 0-None Headache: 0-None Present CIWA-Ar Total Score: 5 - Admission Criteria OASAS Guidelines: Admission for Medically Managed Detox: Requires at least one of the followin. CIWA greater than 12 2. Seizures within the past 24 hours 3. Delirium tremens within the past 24 hours 4. Hallucinations within the past 24 hours 5. Acute intervention needed for co occurring medical disorder 6. Acute intervention needed for co occurring psychiatric disorder 7. Severe withdrawal that cannot be handled at a lower level of care (continued vomiting, continued diarrhea, abnormal vital signs) requiring intravenous medication and/or fluids 8. Admission [facility] Allergies/Adverse Reactions: Allergies Allergy/AdvReac Type Severity Reaction Status Date / Time No Known Allergies Allergy Verified 12/11/18 17:09 History of Present Illness: 58 y.o. male requesting detox from heroin and etoh , reports heroin 1 bundle /day via inhalation denies ivdu , first age of use 10 , detox x 8 , no rehab , longest sobriety 4 years w/ work , moved to [place] ( 1995) , latest use this morning , current symptoms as above , denies OD . etoh : 2 pints/day , first age of use 13 , heavily since 2 years ago , denies seizures, denies blackouts , reports tremors if not drinking , starts drinking in the mornings , latest use 9 am today . denies other illicits tobacco : 12 cigs/day PMHX : denies PSHx : denies PSych : denies , denies SI / Hi . Search Terms: uyen wayne, 1960 Search Date: 12/11/2018 05:40:24 PM This report was requested by: Nicci Parsons | Reference #: [id number] There are no results for the search terms that you entered. of note , registrar was notified by scenario writer that pt is registered as female in the system, per registrar pt is also registered as female with insurance company Exam Limitations: No Limitations - Ebola screening Have you traveled outside of the country in the last 21 days: No Have you had contact with anyone from an Ebola affected area: No - Review of Systems Constitutional: Loss of Appetite EENT: reports: Other (glasses - reading) Respiratory: reports: No Symptoms reported Cardiac: reports: No Symptoms Reported GI: reports: Poor Appetite : reports: No Symptoms Reported Musculoskeletal: reports: See HPI Integumentary: reports: No Symptoms Reported Neuro: reports: No Symptoms reported Endocrine: reports: No Symptoms Reported Psychiatric: reports: Orientated x3, Anxious Patient History - Patient Medical History Hx Anemia: No Hx Asthma: No Hx Chronic Obstructive Pulmonary Disease (COPD): No Hx Cancer: No Hx Cardiac Disorders: No Hx Congestive Heart Failure: No Hx Hypertension: No Hx Hypercholesterolemia: No Hx Pacemaker: No HX Cerebrovascular Accident: No Hx Seizures: No Hx Dementia: No Hx Diabetes: No Hx Gastrointestinal Disorders: No Hx Liver Disease: No Hx Genitourinary Disorders: No Hx Sexually Transmitted Disorders: No Hx Renal Disease (ESRD): No Hx Thyroid Disease: No Hx Human Immunodeficiency Virus (HIV): No (NEGATIVE HX) Hx Hepatitis C: No Hx Depression: No Hx Suicide Attempt: No (DENIES) Hx Bipolar Disorder: No Hx Schizophrenia: No - Patient Surgical History Past Surgical History: Yes Hx Neurologic Surgery: No Hx Cataract Extraction: No Hx Cardiac Surgery: No Hx Lung Surgery: No Hx Breast Surgery: No Hx Breast Biopsy: No Hx Abdominal Surgery: No Hx Appendectomy: No Hx Cholecystectomy: No Hx Genitourinary Surgery: No Hx Section: No Hx Orthopedic Surgery: No Other Surgical History: scalp surgery 2008 Anesthesia Reaction: No - Smoking Cessation Smoking history: Current every day smoker Have you smoked in the past 12 months: Yes Aproximately how many cigarettes per day: 10 Hx Chewing Tobacco Use: No Initiated information on smoking cessation: No - Substances abused Alcohol Substance route: Oral Frequency: Daily Amount used: 2 pints of vodka. Age of first use: 13 Date of last use: 12/11/18 Heroin Substance route: Inhalation Frequency: Daily Amount used: 1 bundle Age of first use: 10 Date of last use: 12/11/18 Admission Physical Exam BHS - Vital Signs Vital Signs: Vital Signs - 24 hr 12/11/18 17:10 Temperature 98.5 F Pulse Rate 91 H Respiratory 20 Rate Blood Pressure 120/69 - Physical General Appearance: Yes: Mild Distress HEENTM: Yes: EOMI, Hearing grossly Normal, Normocephalic, Normal Voice, Muffled/ Hoarse Voice, Other (poor dentition) Respiratory: Yes: Chest Non-Tender, Lungs Clear, Normal Breath Sounds, No Respiratory Distress, No Accessory Muscle Use Neck: Yes: No masses,lesions,Nodules, Trachea in good position Cardiology: Yes: Regular Rhythm, Regular Rate, S1, S2, Tachycardia Abdominal: Yes: Normal Bowel Sounds, Non Tender, Soft Back: Yes: Normal Inspection Musculoskeletal: Yes: Gait Steady Extremities: Yes: Normal Range of Motion Neurological: Yes: Fully Oriented, Alert, Motor Strength 5/5 Integumentary: Yes: Warm - Diagnostic (1) Alcohol use disorder Current Visit: Yes Status: Chronic (2) Opioid dependence with withdrawal Current Visit: Yes Status: Chronic (3) Nicotine dependence Current Visit: Yes Status: Chronic Qualifiers: Nicotine product type: cigarettes Breathalyzer - Breathalyzer Breathalyzer: 0 Urine Drug Screen - Test Device Lot number: [id number] Expiration date: 08/21/20 - Control Is test valid?: Yes - Results Drug screen NEGATIVE: No Urine drug screen results: MOP-Opiates, OXY-Oxycodone Inpatient Rehab Admission - Rehab Decision to Admit Inpatient rehab admission?: No"
[2018-12-11] MEDS ORDERED: BISMUTH SUBSALICYLATE 524 MG/30 ML UD PO PRN (17:50)
[2018-12-11] MEDS ORDERED: hydrOXYzine PAMOATE 25 MG CAPSULE (FP) PO PRN (17:50)
[2018-12-11] MEDS ORDERED: MAGNESIUM CITRATE 300 ML BOTTLE PO PRN (17:50)
[2018-12-11] MEDS ORDERED: MAG HYDROX/AL HYDROX/SIMETH 30 ML UNIT-DOSE CUP PO PRN (17:50)
[2018-12-11] MEDS ORDERED: ACETAMINOPHEN 325 MG TABLET (FP) PO PRN ×2 (17:50)
[2018-12-11] MEDS ORDERED: MENTHOL/PHENOL 1 EACH UD MM PRN (17:50)
[2018-12-11] MEDS ORDERED: MAGNESIUM HYDROX 2400MG/30ML ORAL SUSPENSION 30 ML CUP PO PRN (17:50)
[2018-12-11] MEDS ORDERED: IBUPROFEN 400 MG TABLET (FP) PO PRN (17:50)
[2018-12-11] MEDS ORDERED: METHOCARBAMOL 500 MG TABLET PO PRN (17:50)
[2018-12-11] MEDS ORDERED: cloNIDine HCL 0.1 MG TABLET PO PRN (17:52)
[2018-12-11] MEDS ORDERED: diazePAM 5 MG TABLET PO PRN (17:52)
[2018-12-11] MEDS ORDERED: METHADONE HCL 10 MG TABLET (FOR DETOX USE ONLY) PO ONE (18:30)
[2018-12-11] MEDS: diazePAM 5 MG TABLET PO SCH (22:21)
[2018-12-11] MEDS: MELATONIN 5 MG TABLETS PO PRN (22:21)
[2018-12-11] MEDS: THIAMINE HCL 100 MG TABLET (FP) PO SCH (22:22)
[2018-12-12] MEDS: diazePAM 5 MG TABLET PO SCH ×3 (05:35→22:03)
[2018-12-12] MEDS ORDERED: METHADONE HCL 5 MG TABLET (FOR DETOX USE ONLY) PO ONE (10:00)
[2018-12-12] MEDS: PRENATAL VITAMINS W/ FOLIC ACID TABLET (FP) PO SCH (10:06)
[2018-12-12 11:20] LABS: HEMATOCRIT 36.9 % (32.4-45.2); HEMOGLOBIN 12.3 GM/dL (10.7-15.3); MCH 31.7 pg (25.7-33.7); MCHC 33.4 g/dl (32.0-36.0); MEAN PLT VOLUME 8.3 fl (7.5-11.1); PLATELET COUNT 260 K/MM3 (134-434); RBC 3.88 M/mm3 (3.60-5.2); RDW 15.1 % (11.6-15.6); WHITE BLOOD COUNT 7.6 K/mm3 (4.0-10.0)
[2018-12-12 11:24] LABS: BILIRUBIN,TOTAL 0.2 mg/dL (0.2-1); BLOOD UREA NITROGEN 17.1 mg/dL (7-18); CREATININE 0.7 mg/dL (0.55-1.3); TOT PROT 6.3 g/dl (6.4-8.2)
--- NOTE | 2018-12-12 13:59 | PN ---
[facility] CIWA - CIWA Score Nausea/Vomitin-No Nausea/No Vomiting Muscle Tremors: 3 Anxiety: 4-Mod. Anxious/Guarded Agitation: 3 Paroxysmal Sweats: No Perspiration Orientation: 0-Oriented Tacttile Disturbances: 0-None Auditory Disturbances: 0-None Visual Disturbances: 1-Very Mild Sensitivity Headache: 0-None Present CIWA-Ar Total Score: 11 S COWS - Scale Resting Pulse: 0= [place] 80 or Below Sweatin= No chills or Flushing Restless Observation: 1= Difficult to Sit Still Pupil Size: 0= Normal to Room Light Bone or Joint Aches: 1= Mild Discomfort Runny Nose/ Eye Tearin= None GI Upset > 30mins: 0= None Tremor Observation of Outstretched Hands: 2= Slight Tremor Visible Yawning Observation: 1= 1-2x During Session Anxiety or Irritability: 2=Irritable/Anxious Goose Flesh Skin: 3=Piloerection COWS Score: 10 S Progress Note (SOAP) Subjective: Fatigue, Anxious, Tremors, Body aches. Objective: PATIENT A & O X 3, OBSERVED AMBULATING ON DETOX UNIT UNASSISTED. IN NO ACUTE DISTRESS. 12/12/18 13:58 Vital Signs Temperature 97.1 F L 12/12/18 13:35 Pulse Rate 75 12/12/18 13:35 Respiratory Rate 18 12/12/18 13:35 Blood Pressure 106/64 12/12/18 13:35 O2 Sat by Pulse Oximetry (%) Laboratory Tests 12/12/18 12/12/18 12/12/18 08:00 08:00 08:00 WBC 7.6 RBC 3.88 Hgb 12.3 Hct 36.9 MCV 95.0 MCH 31.7 MCHC 33.4 RDW 15.1 Plt Count 260 MPV 8.3 Sodium 140 Potassium 4.0 Chloride 102 Carbon Dioxide 32 Anion Gap 5 L BUN 17.1 Creatinine 0.7 Est GFR (CKD-EPI)AfAm 109.15 Est GFR (CKD-EPI)NonAf 94.17 Random Glucose 93 Calcium 9.0 Total Bilirubin 0.2 AST 10 L ALT 13 Alkaline Phosphatase 81 Total Protein 6.3 L Albumin 3.0 L RPR Titer Nonreactive LABS NOTED. RESULTS OF DETOX ADMISSION QFT /TB TEST PENDING. 12/12/18 13:59 Assessment: 12/12/18 13:58 WITHDRAWAL SYMPTOMS. Plan: CONTINUE DETOX.
[2018-12-12] MEDS: NICOTINE POLACRILEX 4 MG GUM BUC PRN (20:41)
[2018-12-12] MEDS: THIAMINE HCL 100 MG TABLET (FP) PO SCH (22:03)
[2018-12-12] MEDS: MELATONIN 5 MG TABLETS PO PRN (22:03)
[2018-12-13] MEDS ORDERED: diazePAM 5 MG TABLET PO SCH (06:00)
[2018-12-13 09:14] VITALS: BP 107/75; PULSE 96; TEMP 98
[2018-12-13] MEDS ORDERED: METHADONE HCL 10 MG TABLET (FOR DETOX USE ONLY) PO ONE (10:00)
[2018-12-13] MEDS: PRENATAL VITAMINS W/ FOLIC ACID TABLET (FP) PO SCH (10:11)
[2018-12-13] MEDS: NICOTINE POLACRILEX 4 MG GUM BUC PRN (10:12)
--- NOTE | 2018-12-13 13:03 | DS ---
[facility] Detox Discharge Summary Admission Date: 12/11/18 Discharge Date: 12/13/18 - History Present History: Alcohol Dependence, Opioid Dependence Additional Comments: 58 years old female admitted on 12/11/18 for alcohol and opiate withdrawal sx management discuss aftercare with staff [facility] for recovery discuss medication assisted treatment program picker packer narcan from pharmacy Pertinent Past History: patient is alert oriented x 3 cardiac S1S2 regular rate rhythm respiratory clear lung sound bilaterally on auscultation denies dizziness no shortness of breath skin warm and dry - Physical Exam Results Vital Signs: Vital Signs Temperature 98.0 F 12/13/18 09:13 Pulse Rate 96 H 12/13/18 09:13 Respiratory Rate 20 12/13/18 09:13 Blood Pressure 107/75 12/13/18 09:13 O2 Sat by Pulse Oximetry (%) Pertinent Admission Physical Exam Findings: alcohol and opiate withdrawal sx Laboratory Last Values WBC 7.6 K/mm3 (4.0-10.0) 12/12/18 08:00 RBC 3.88 M/mm3 (3.60-5.2) 12/12/18 08:00 Hgb 12.3 GM/dL (10.7-15.3) 12/12/18 08:00 Hct 36.9 % (32.4-45.2) 12/12/18 08:00 MCV 95.0 fl (80-96) 12/12/18 08:00 MCH 31.7 pg (25.7-33.7) 12/12/18 08:00 MCHC 33.4 g/dl (32.0-36.0) 12/12/18 08:00 RDW 15.1 % (11.6-15.6) 12/12/18 08:00 Plt Count 260 K/MM3 (134-434) 12/12/18 08:00 MPV 8.3 fl (7.5-11.1) 12/12/18 08:00 Sodium 140 mmol/L (136-145) 12/12/18 08:00 Potassium 4.0 mmol/L (3.5-5.1) 12/12/18 08:00 Chloride 102 mmol/L (98-107) 12/12/18 08:00 Carbon Dioxide 32 mmol/L (21-32) 12/12/18 08:00 Anion Gap 5 MMOL/L (8-16) L 12/12/18 08:00 BUN 17.1 mg/dL (7-18) 12/12/18 08:00 Creatinine 0.7 mg/dL (0.55-1.3) 12/12/18 08:00 Est GFR (CKD-EPI)AfAm 109.15 12/12/18 08:00 Est GFR (CKD-EPI)NonAf 94.17 12/12/18 08:00 Random Glucose 93 mg/dL (74-106) 12/12/18 08:00 Calcium 9.0 mg/dL (8.5-10.1) 12/12/18 08:00 Total Bilirubin 0.2 mg/dL (0.2-1) 12/12/18 08:00 AST 10 U/L (15-37) L 12/12/18 08:00 ALT 13 U/L (13-61) 12/12/18 08:00 Alkaline Phosphatase 81 U/L (45-117) 12/12/18 08:00 Total Protein 6.3 g/dl (6.4-8.2) L 12/12/18 08:00 Albumin 3.0 g/dl (3.4-5.0) L 12/12/18 08:00 RPR Titer Nonreactive (NONREACTIVE) 12/12/18 08:00 lab noted - Treatment Hospital Course: Detox Protocol Followed, Detoxed Safely, Responded well, Discharged Condition Good, Rehab Referral Accepted Patient has Accepted a Rehab Referral to: [facility] - Medication Discharge Medications: Ambulatory Orders Naloxone HCl [Narcan] 4 mg NS ASDIR PRN #1 spray 12/13/18 - Diagnosis (1) Alcohol use disorder Status: Acute (2) Nicotine dependence Status: Acute Qualifiers: Nicotine product type: cigarettes Substance use status: in withdrawal Qualified Code(s): F17.213 - Nicotine dependence, cigarettes, with withdrawal (3) Opioid dependence with withdrawal Status: Acute (4) PPD positive, treated Status: Resolved - AMA Did Patient Leave Against Medical Advice: No CIWA Score - CIWA Score Nausea/Vomitin-No Nausea/No Vomiting Muscle Tremors: 2 Anxiety: 3 Agitation: 2 Paroxysmal Sweats: No Perspiration Orientation: 0-Oriented Tacttile Disturbances: 0-None Auditory Disturbances: 0-None Visual Disturbances: 0-None Headache: 0-None Present CIWA-Ar Total Score: 7 COWS (PN) - Opiate Withdrawal Resting Pulse: 0= [place] 80 or Below Sweatin= Chills/Flushing Restless Observation: 0= Sits Still Pupil Size: 0= Normal to Room Light Bone or Joint Aches: 1= Mild Discomfort Runny Nose/ Eye Tearin= Nasal Congestion GI Upset > 30mins: 1= Stomach Cramp Tremor Observation of Outstretched Hands: 1= Tremor [place], Not Seen Yawning Observation: 0= None Anxiety or Irritability: 1=Feels Anxious/Irritable Goose Flesh Skin: 0=Smooth Skin COWS Score: 6
[2018-12-14] MEDS ORDERED: diazePAM 5 MG TABLET PO ONE (06:00)
[2018-12-14] MEDS ORDERED: METHADONE HCL 5 MG TABLET (FOR DETOX USE ONLY) PO ONE (06:00)
== END 2018-12-13 12:20 | disposition home or self-care (01) | DRG 773 ==
LOC: YASAS 12:05 → Y3N 18:21
PROVIDERS: ADMIT Surgery; ATTEND Surgery
PROC: HZ2ZZZZ Detoxification Services for Substance Abuse Treatment (ICD-10-PCS; principal; 2018-12-11)
DX: F10.230 Alcohol dependence with withdrawal, uncomplicated (principal); F11.23 Opioid dependence with withdrawal; F17.213 Nicotine dependence, cigarettes, with withdrawal; R76.11 Nonspecific reaction to tuberculin skin test without active tuberculosis
CPT/HCPCS: 36415; 80053; 85027; 86480; 86593

== ENCOUNTER 2019-09-18 08:59 | Inpatient (IN) | payer BC ==
[2019-09-18 09:47] VITALS: BMI 26.1
--- NOTE | 2019-09-18 11:16 | BHS.RME ---
Substance Use & Tx History - Substance Use History Heroin Substance amount: 9 bags Frequency of use: Daily Substance route: Inhalation (ex: sniffing or snorting) Date of Last Use: 09/18/19 - Last Treatment Date of last treatment: 12/11/2018 Treatment type: Medical Where was last treatment: Detox Physical/Psych/Mental Status - Behavior General Behavior: Increased activity (restlessness, agitation) Eye Contact: Normal Other Behaviors: Mannerisms - Cooperativeness Cooperativeness: Cooperative - Thinking Thought Processes: Logical, Goal Directed Thought content: Future oriented - Physical Health Problems Is patient presently having any pain?: No Does patient presently have any injuries (include location): No Does patient currently have a fever: No COWS - Scale Resting Pulse: 1= [place] 81-100 Sweatin= Chills/Flushing Restless Observation: 1= Difficult to Sit Still Pupil Size: 1= Pupils >than Normal Bone or Joint Aches: 1= Mild Discomfort Runny Nose/ Eye Tearin= Runny Nose/Eyes GI Upset > 30mins: 1= Stomach Cramp Tremor Observation: 1= Tremor [place], Not Seen Yawning Observation: 1= 1-2x During Session Anxiety or Irritability: 2=Irritable/Anxious Goose Flesh Skin: 3=Piloerection COWS Score: 15
--- NOTE | 2019-09-18 11:26 | HP ---
COWS - Scale Resting Pulse: 1= [place] 81-100 Sweatin= Chills/Flushing Restless Observation: 1= Difficult to Sit Still Pupil Size: 1= Pupils >than Normal Bone or Joint Aches: 1= Mild Discomfort Runny Nose/ Eye Tearin= Runny Nose/Eyes GI Upset > 30mins: 1= Stomach Cramp Tremor Observation: 1= Tremor [place], Not Seen Yawning Observation: 1= 1-2x During Session Anxiety or Irritability: 2=Irritable/Anxious Goose Flesh Skin: 3=Piloerection COWS Score: 15 CIWA Score - Admission Criteria [facility]ASAS Guidelines: Admission for Medically Managed Detox: Requires at least one of the followin. CIWA greater than 12 2. Seizures within the past 24 hours 3. Delirium tremens within the past 24 hours 4. Hallucinations within the past 24 hours 5. Acute intervention needed for co occurring medical disorder 6. Acute intervention needed for co occurring psychiatric disorder 7. Severe withdrawal that cannot be handled at a lower level of care (continued vomiting, continued diarrhea, abnormal vital signs) requiring intravenous medication and/or fluids 8. Admitting History and Physical - Smoking History Smoking history: Current every day smoker Have you smoked in the past 12 months: Yes Aproximately how many cigarettes per day: 10 - Alcohol/Substance Use Hx Alcohol Use: No (DENIES) Admission ROS [facility] Chief Complaint: I am too old to continue doing drugs, I want to do the right thing Allergies/Adverse Reactions: Allergies Allergy/AdvReac Type Severity Reaction Status Date / Time No Known Allergies Allergy Verified 09/18/19 09:43 History of Present Illness: Patient is a 59 year old man who presents requesting detox from heroin, his last treatment was in November of last year. He denies OD Exam Limitations: No Limitations - Ebola screening Have you traveled outside of the country in the last 21 days: No Have you had contact with anyone from an Ebola affected area: No Have you been sick,other than usual withdrawal symptoms: No Do you have a fever: No - Review of Systems Constitutional: Chills, Weight Stable EENT: reports: Nose Congestion Respiratory: reports: Cough (r/t smoking) Cardiac: reports: No Symptoms Reported GI: reports: Nausea, Abdominal cramping : reports: No Symptoms Reported Musculoskeletal: reports: Back Pain, Muscle Pain Integumentary: reports: Sweating Neuro: reports: Tremors Endocrine: reports: No Symptoms Reported Hematology: reports: No Symptoms Reported Psychiatric: reports: No Sypmtoms Reported Other Systems: Reviewed and Negative Patient History - Patient Medical History Hx Anemia: No Hx Asthma: Yes Hx Chronic Obstructive Pulmonary Disease (COPD): No Hx Cancer: No Hx Cardiac Disorders: No Hx Congestive Heart Failure: No Hx Hypertension: No Hx Hypercholesterolemia: No Hx Pacemaker: No HX Cerebrovascular Accident: No Hx Seizures: No Hx Dementia: No Hx Diabetes: No Hx Gastrointestinal Disorders: No Hx Liver Disease: No Hx Genitourinary Disorders: No Hx Sexually Transmitted Disorders: No Hx Renal Disease (ESRD): No Hx Thyroid Disease: No Hx Human Immunodeficiency Virus (HIV): No Hx Hepatitis C: No Hx Depression: No Hx Suicide Attempt: No Hx Bipolar Disorder: No Hx Schizophrenia: No - Patient Surgical History Past Surgical History: Yes Hx Neurologic Surgery: No Hx Cataract Extraction: No Hx Cardiac Surgery: No Hx Lung Surgery: No Hx Breast Surgery: No Hx Breast Biopsy: No Hx Abdominal Surgery: No Hx Appendectomy: No Hx Cholecystectomy: No Hx Genitourinary Surgery: No Hx Section: No Hx Orthopedic Surgery: No Other Surgical History: scalp surgery 2007 Anesthesia Reaction: No - PPD History Previous Implant?: No Implanted On [facility] Admission?: No PPD to be Administered?: No - Smoking Cessation Smoking history: Current every day smoker Have you smoked in the past 12 months: Yes Aproximately how many cigarettes per day: 20 Hx Chewing Tobacco Use: No Initiated information on smoking cessation: Yes 'Breaking Loose' booklet given: 09/18/19 - Substances abused Heroin Substance route: Inhalation Frequency: Daily Amount used: 9bags Age of first use: 10 Date of last use: 09/17/19 Admission Physical Exam BHS - Vital Signs Vital Signs: Vital Signs - 24 hr 09/18/19 09:44 Temperature 97.5 F L Pulse Rate 92 H Respiratory 18 Rate Blood Pressure 142/94 - Physical General Appearance: Yes: No Apparent Distress HEENTM: Yes: Hearing grossly Normal, Normal ENT Inspection, Normocephalic, Pharynx Normal Respiratory: Yes: Chest Non-Tender, Lungs Clear, Normal Breath Sounds, No Respiratory Distress, No Accessory Muscle Use Neck: Yes: No masses,lesions,Nodules, Supple Breast: Yes: Breast Exam Deferred Cardiology: Yes: Regular Rhythm, Regular Rate Abdominal: Yes: Normal Bowel Sounds, Soft Back: Yes: Normal Inspection Extremities: Yes: Normal Capillary Refill, Non-Tender, Tremors Neurological: Yes: Fully Oriented, Alert, Normal Mood/Affect, Normal Response Integumentary: Yes: Cold - Diagnostic (1) Nicotine dependence Current Visit: Yes Status: Acute Qualifiers: Nicotine product type: cigarettes Substance use status: in withdrawal Qualified Code(s): F17.213 - Nicotine dependence, cigarettes, with withdrawal (2) Opioid dependence with withdrawal Current Visit: Yes Status: Acute Cleared for Admission [facility] - Detox or Rehab [facility] Level of Care: Medically Managed Detox Regimen/Protocol: Methadone Claeared for Rehab Admission: No Breathalyzer - Breathalyzer Breathalyzer: 0 Urine Drug Screen - Test Device Lot number: [id number] Expiration date: 11/21/20 - Control Is test valid?: Yes - Results Drug screen NEGATIVE: No Urine drug screen results: CEDRIC-Cocaine, MOP-Opiates Inpatient Rehab Admission - Rehab Decision to Admit Inpatient rehab admission?: No
[2019-09-18] MEDS ORDERED: MAGNESIUM HYDROX 2400MG/30ML ORAL SUSPENSION 30 ML CUP PO PRN (11:33)
[2019-09-18] MEDS ORDERED: MAG HYDROX/AL HYDROX/SIMETH 30 ML UNIT-DOSE CUP PO PRN (11:33)
[2019-09-18] MEDS ORDERED: MAGNESIUM CITRATE 300 ML BOTTLE PO PRN (11:33)
[2019-09-18] MEDS ORDERED: NALOXONE HCL 0.4 MG/ML VIAL IM PRN (11:33)
[2019-09-18] MEDS ORDERED: ACETAMINOPHEN 325 MG TABLET (FP) PO PRN ×2 (11:33)
[2019-09-18] MEDS ORDERED: IBUPROFEN 400 MG TABLET (FP) PO PRN (11:33)
[2019-09-18] MEDS ORDERED: METHOCARBAMOL 500 MG TABLET PO PRN (11:33)
[2019-09-18] MEDS ORDERED: BISMUTH SUBSALICYLATE 524 MG/30 ML UD PO PRN (11:33)
[2019-09-18] MEDS ORDERED: MENTHOL/PHENOL 1 EACH UD MM PRN (11:33)
[2019-09-18] MEDS ORDERED: cloNIDine HCL 0.1 MG TABLET PO PRN (11:33)
[2019-09-18] MEDS ORDERED: METHADONE HCL 10 MG TABLET (FOR DETOX USE ONLY) PO ONE (12:00)
[2019-09-18] MEDS: NICOTINE POLACRILEX 2 MG GUM BUC PRN (17:58)
[2019-09-18] MEDS: MELATONIN 5 MG TABLETS PO SCH (22:20)
[2019-09-18] MEDS: THIAMINE HCL 100 MG TABLET (FP) PO SCH (22:20)
[2019-09-19] MEDS ORDERED: METHADONE HCL 5 MG TABLET (FOR DETOX USE ONLY) ONE (08:43)
[2019-09-19] MEDS ORDERED: METHADONE HCL 10 MG TABLET (FOR DETOX USE ONLY) ONE (08:43)
[2019-09-19] MEDS: PRENATAL VITAMINS W/ FOLIC ACID TABLET (FP) PO SCH (09:15)
[2019-09-19] MEDS ORDERED: METHADONE (DETOX) 20 MG, METHADONE (DETOX) 5 MG PO ONE (10:00)
[2019-09-19 11:45] LABS: HEMATOCRIT 39.7 % (32.4-45.2); HEMOGLOBIN 13.1 GM/dL (10.7-15.3); MCH 30.9 pg (25.7-33.7); MCHC 32.9 g/dl (32.0-36.0); MEAN CELL VOLUME 93.9 fl (80-96); MEAN PLT VOLUME 8.8 fl (7.5-11.1); PLATELET COUNT 254 K/MM3 (134-434); RBC 4.23 M/mm3 (3.60-5.2); WHITE BLOOD COUNT 7.3 K/mm3 (4.0-10.0)
[2019-09-19 11:55] LABS: ALBUMIN 3.2 g/dl (3.4-5.0); BILIRUBIN,TOTAL 0.4 mg/dL (0.2-1); BLOOD UREA NITROGEN 10.2 mg/dL (7-18); CALCIUM 8.8 mg/dL (8.5-10.1); CREATININE 0.6 mg/dL (0.55-1.3); POTASSIUM 4.2 mmol/L (3.5-5.1); TOT PROT 6.8 g/dl (6.4-8.2)
--- NOTE | 2019-09-19 14:06 | PN ---
BHS COWS - Scale Resting Pulse: 0= [place] 80 or Below Sweatin= Chills/Flushing Restless Observation: 0= Sits Still Pupil Size: 1= Pupils >than Normal Bone or Joint Aches: 2= Severe Diffuse Aches Runny Nose/ Eye Tearin= None GI Upset > 30mins: 1= Stomach Cramp Tremor Observation of Outstretched Hands: 2= Slight Tremor Visible Yawning Observation: 0= None Anxiety or Irritability: 2=Irritable/Anxious Goose Flesh Skin: 3=Piloerection COWS Score: 12 BHS Progress Note (SOAP) Subjective: 59 years old female admitted on 09/18/19 for opiate withdrawal sx management treating with methadone detox regiment feeling tired ate breakfast and lunch resting in bed limited conversation with staff Objective: 09/19/19 14:05 Vital Signs - 24 hr 09/18/19 09/18/19 09/19/19 16:57 20:50 00:30 Temperature 97.3 F L 97.8 F Pulse Rate 71 71 Respiratory 17 18 16 Rate Blood Pressure 127/76 125/73 O2 Sat by Pulse 98 Oximetry (%) 09/19/19 09/19/19 09/19/19 03:30 07:00 11:12 Temperature 98.0 F 98.5 F Pulse Rate 73 77 Respiratory 16 18 18 Rate Blood Pressure 131/73 127/70 O2 Sat by Pulse 93 L Oximetry (%) 09/19/19 11:16 Temperature Pulse Rate Respiratory Rate Blood Pressure O2 Sat by Pulse 97 Oximetry (%) Laboratory Tests 09/19/19 09/19/19 09/19/19 07:30 07:30 07:30 WBC 7.3 RBC 4.23 Hgb 13.1 Hct 39.7 MCV 93.9 MCH 30.9 MCHC 32.9 RDW 15.0 Plt Count 254 MPV 8.8 Sodium 139 Potassium 4.2 Chloride 102 Carbon Dioxide 32 Anion Gap 5 L BUN 10.2 Creatinine 0.6 Est GFR (CKD-EPI)AfAm 114.02 Est GFR (CKD-EPI)NonAf 98.38 Random Glucose 90 Calcium 8.8 Total Bilirubin 0.4 AST 19 ALT 21 Alkaline Phosphatase 80 Total Protein 6.8 Albumin 3.2 L Syphilis Serology Non-reactive Assessment: 09/19/19 14:06 opiate withdrawal Plan: methadone regiment
--- NOTE | 2019-09-19 14:49 | EKG ---
Test Reason : Blood Pressure : / mmHG Vent. Rate : 074 BPM Atrial Rate : 074 BPM P-R Int : 166 ms QRS Dur : 086 ms QT Int : 390 ms P-R-T Axes : 077 036 057 degrees QTc Int : 432 ms NORMAL SINUS RHYTHM LEFT ATRIAL ENLARGEMENT SEPTAL INFARCT , AGE UNDETERMINED ABNORMAL ECG WHEN COMPARED WITH ECG OF 18-APR-2017 14:02, NO SIGNIFICANT CHANGE WAS FOUND Confirmed by MD NILSA, STACEY ([id number]) on 09/19/2019 2:49:10 PM Referred By: NILSON FOREMAN Confirmed By:STACEY ASH MD
[2019-09-19] MEDS: NICOTINE POLACRILEX 2 MG GUM BUC PRN (17:16)
[2019-09-19] MEDS: MELATONIN 5 MG TABLETS PO SCH (22:35)
[2019-09-19] MEDS: THIAMINE HCL 100 MG TABLET (FP) PO SCH (22:36)
[2019-09-20] MEDS ORDERED: METHADONE HCL 10 MG TABLET (FOR DETOX USE ONLY) PO ONE (10:00)
[2019-09-20] MEDS: PRENATAL VITAMINS W/ FOLIC ACID TABLET (FP) PO SCH (10:03)
[2019-09-20] MEDS: NICOTINE POLACRILEX 2 MG GUM BUC PRN (10:06)
[2019-09-20 12:29] VITALS: BP 106/69; PULSE 78; TEMP 98.1
--- NOTE | 2019-09-20 14:13 | PN ---
BHS COWS - Scale Resting Pulse: 0= [place] 80 or Below Sweatin= Chills/Flushing Restless Observation: 0= Sits Still Pupil Size: 0= Normal to Room Light Bone or Joint Aches: 1= Mild Discomfort Runny Nose/ Eye Tearin= None GI Upset > 30mins: 2= Nausea/Diarrhea Tremor Observation of Outstretched Hands: 0= None Yawning Observation: 0= None Anxiety or Irritability: 2=Irritable/Anxious Goose Flesh Skin: 0=Smooth Skin COWS Score: 6 BHS Progress Note (SOAP) Subjective: C/o bubbly stomach,diarrhea,anxiety-Says "I'll ride it out", when told to ask for prn medication for GI discomfort. Objective: 09/20/19 14:16 Vital Signs - 8 hr 09/20/19 09/20/19 06:25 10:01 Temperature 97.5 F L 98.1 F Pulse Rate 63 78 Respiratory 16 18 Rate Blood Pressure 118/73 106/69 O2 Sat by Pulse 100 98 Oximetry (%) Laboratory Tests 09/19/19 09/19/19 09/19/19 07:30 07:30 07:30 WBC 7.3 RBC 4.23 Hgb 13.1 Hct 39.7 MCV 93.9 MCH 30.9 MCHC 32.9 RDW 15.0 Plt Count 254 MPV 8.8 Sodium 139 Potassium 4.2 Chloride 102 Carbon Dioxide 32 Anion Gap 5 L BUN 10.2 Creatinine 0.6 Est GFR (CKD-EPI)AfAm 114.02 Est GFR (CKD-EPI)NonAf 98.38 Random Glucose 90 Calcium 8.8 Total Bilirubin 0.4 AST 19 ALT 21 Alkaline Phosphatase 80 Total Protein 6.8 Albumin 3.2 L Syphilis Serology Non-reactive covid-19 pending Assessment: 09/20/19 14:16 withdrawal sx Plan: cont detox increase po fluids imodium prn
--- NOTE | 2019-09-20 15:25 | DS ---
[facility] Detox Discharge Summary Admission Date: 09/18/19 Discharge Date: 09/20/19 - History Present History: Alcohol Dependence, Opioid Dependence Additional Comments: Pt declined to continue with detox stating "i have responsibility at home. The pet is home alone in a cage. i forgot. Pt recieved Methadone 20 mg po today. Pt presented here for Heroin detox on 09/18/19. Pt reports he has primary care with [facility].Pt has been instructed to go to the nearest ER if medical care is needed. Pertinent Past History: Hypotension Hx PPD+ with treatment - Physical Exam Results Vital Signs: Vital Signs Temperature 98.1 F 09/20/19 10:01 Pulse Rate 78 09/20/19 10:01 Respiratory Rate 18 09/20/19 10:01 Blood Pressure 106/69 09/20/19 10:01 O2 Sat by Pulse Oximetry (%) 98 09/20/19 10:01 Alert o x 3 nad oob ambulating with steady gait Pertinent Admission Physical Exam Findings: Laboratory Tests 09/19/19 09/19/19 09/19/19 07:30 07:30 07:30 WBC 7.3 RBC 4.23 Hgb 13.1 Hct 39.7 MCV 93.9 MCH 30.9 MCHC 32.9 RDW 15.0 Plt Count 254 MPV 8.8 Sodium 139 Potassium 4.2 Chloride 102 Carbon Dioxide 32 Anion Gap 5 L BUN 10.2 Creatinine 0.6 Est GFR (CKD-EPI)AfAm 114.02 Est GFR (CKD-EPI)NonAf 98.38 Random Glucose 90 Calcium 8.8 Total Bilirubin 0.4 AST 19 ALT 21 Alkaline Phosphatase 80 Total Protein 6.8 Albumin 3.2 L Syphilis Serology Non-reactive - Treatment Hospital Course: Discharged Condition Good, Rehab Referral Accepted Patient has Accepted a Rehab Referral to: [facility] - Medication Discharge Medications: Ambulatory Orders NK [No Known Home Medication] 09/18/19 - Diagnosis (1) Alcohol use disorder Status: Acute (2) Nicotine dependence Status: Acute Qualifiers: Nicotine product type: cigarettes Substance use status: in withdrawal Qualified Code(s): F17.213 - Nicotine dependence, cigarettes, with withdrawal (3) Opioid dependence with withdrawal Status: Acute (4) PPD positive, treated Status: Resolved - AMA Did Patient Leave Against Medical Advice: Yes (AMA)
[2019-09-21] MEDS ORDERED: METHADONE (DETOX) 10 MG, METHADONE (DETOX) 5 MG PO ONE (10:00)
[2019-09-22] MEDS ORDERED: METHADONE HCL 10 MG TABLET (FOR DETOX USE ONLY) PO ONE (10:00)
[2019-09-23] MEDS ORDERED: METHADONE HCL 5 MG TABLET (FOR DETOX USE ONLY) PO ONE (06:00)
== END 2019-09-20 14:33 | disposition left against medical advice (07) | DRG 770 ==
LOC: YASAS 08:59 → Y5N DETOX 11:18
PROVIDERS: ADMIT Allergy & Immunology; ATTEND Allergy & Immunology
PROC: HZ2ZZZZ Detoxification Services for Substance Abuse Treatment (ICD-10-PCS; principal; 2019-09-18)
DX: F11.23 Opioid dependence with withdrawal (principal); F10.230 Alcohol dependence with withdrawal, uncomplicated; F17.213 Nicotine dependence, cigarettes, with withdrawal; J45.909 Unspecified asthma, uncomplicated
CPT/HCPCS: 36415; 71046-TC-FY; 80053; 85027; 86780; 93005; 93010; U0003